=== PATIENT | male | born 1950 | race Caucasian/White ===

== ENCOUNTER → 2016-12-09 | Outpatient (CLI) | payer MEDICARE ==
[2016-12-09 10:44] LABS: ALT 57 U/L (21-72); AST 37 U/L (17-59); Alkaline Phosphatase 93 U/L (38-126); Anion Gap 10 mmol/L; Blood Urea Nitrogen 15 mg/dL (9-20); Calcium 9.1 mg/dL (8.4-10.2); Carbon Dioxide 23 mmol/L (22-30); Chloride 106 mmol/L (98-107); Glucose 111 mg/dL (74-99); Non-African American GFR(MDRD) >60 (>60 ml/min/1.73 sqM); Potassium 4.4 mmol/L (3.5-5.1); Sodium 139 mmol/L (137-145); Total Protein 6.5 g/dL (6.3-8.2)
[2016-12-09 11:08] LABS: Aty Lym Flag Slight; CH 31.2; CHCM 33.1; HCT 48.8 % (39.0-53.0); HDW 2.43; HGB 16.2 gm/dL (13.0-17.5); MCH 31.4 pg (25.0-35.0); MCHC 33.1 g/dL (31.0-37.0); MCV 94.8 fL (80.0-100.0); Mean Platelet Volume 7.4; RBC 5.14 m/uL (4.30-5.90); RDW 12.8 % (11.5-15.5); WBC 3.3 k/uL (3.8-10.6); WBC (Perox) 3.29
[2016-12-09 11:15] LABS: Prostate Specific Antigen 4.25 ng/mL (0.00-4.00)
[2016-12-09 12:06] LABS: Add Differential Manual Differential
[2016-12-09 12:09] LABS: Manual Review Performed; Nucleated Red Blood Cells 0 /100 WBC (0-0); RBC Morphology Normal; Total Cells Counted 100
== END | disposition home or self-care (01) ==
LOC: LABWHC1 09:20
PROVIDERS: ATTEND Psychiatry & Neurology Neurology
DX: N13.9 Obstructive and reflux uropathy, unspecified (principal); R73.9 Hyperglycemia, unspecified
CPT/HCPCS: 36415; 80053; 84153; 85025

== ENCOUNTER 2018-02-03 16:27 | Inpatient (IN) | payer MEDICARE ==
[2018-02-03] MEDS ORDERED: HYDROcodone/APAP 7.5-325MG 1 EACH TAB PO PRN ×2 (17:22)
[2018-02-03] MEDS ORDERED: ONDANSETRON 4 MG/2 ML VIAL IVP PRN (17:22)
[2018-02-03] MEDS ORDERED: hydrOXYzine PAMOATE 25 MG CAP PO PRN (17:22)
[2018-02-03] MEDS ORDERED: TEMAZEPAM 15 MG CAP PO PRN (17:22)
[2018-02-03] MEDS ORDERED: NALOXONE 0.4 MG/ML 1 ML VIAL IV PRN (17:22)
[2018-02-03] MEDS ORDERED: DIAZEPAM 5 MG TAB PO PRN (17:22)
[2018-02-03] MEDS ORDERED: HYDROmorphone 1 MG/ML 1 ML SYRINGE IVP PRN ×3 (17:22)
--- NOTE | 2018-02-03 17:32 | P.HPOR ---
History of Present Illness H&P Date: 02/03/18 Chief Complaint: Left Hip fracture Patient is a 67 year old male. He sustained injury to his left hip when he fell at home on 02/03/18. He was making his bed and his foot became caught in the covers. He had immediate onset of pain at the time of injury and was unable to bear any weight on the left hip since the injury. Patient states his pain level is at 9/10. He continues to have pain. He describes his pain as sharp and stabbing. Patient admits to taking medication for his symptoms including Motrin. He denies new numbness, tingling, calf pain, fever, chills, chest pain, shortness of breath, slurred speech or other. Review of Systems All systems: negative Constitutional: Denies chills, Denies fever Eyes: denies blurred vision, denies pain Ears, nose, mouth and throat: Denies headache, Denies sore throat Cardiovascular: Denies chest pain, Denies shortness of breath Respiratory: Denies cough Gastrointestinal: Denies abdominal pain, Denies diarrhea, Denies nausea, Denies vomiting Musculoskeletal: Denies myalgias Integumentary: Denies pruritus, Denies rash Neurological: Denies numbness, Denies weakness Psychiatric: Denies anxiety, Denies depression Endocrine: Denies fatigue, Denies weight change Past Medical History Additional Past Medical History / Comment(s): MS History of Any Multi-Drug Resistant Organisms: None Reported Past Surgical History: No Surgical Hx Reported Past Psychological History: No Psychological Hx Reported Smoking Status: Never smoker Past Alcohol Use History: None Reported Past Drug Use History: None Reported Medications and Allergies Home Medications Medication Instructions Recorded Confirmed Type Aspirin 07/17/14 07/17/14 History Allergies Allergy/AdvReac Type Severity Reaction Status Date / Time No Known Allergies Allergy Verified 07/17/14 01:05 Physical Examination Inspection: The hip area does not reveal any swelling, ecchymosis, or deformity. Patient is not put through range of motion due to recent hip fracture. Neurovascular status is intact. Circulatory status is intact. calf is soft and nontender Results Xrays from office on 02/03/18 show a displaced subcapital femoral neck fracture Assessment and Plan (1) Closed left hip fracture Narrative/Plan: Patient is being directed admitted with plans to proceed with surgical intervention tomorrow 02/04/18 including a left hip hemiarthroplasty. Preop clearance has been requested from Dr. Dee. He is NPO after midnight. The order for procedure schedule and consent has been placed. Labs, EKG and chest xray have been ordered as well. DVT prophylaxis, pain management and medical management in the interim. Current Visit: No Status: Acute Priority: Medium Code(s): S72.002A - FRACTURE OF UNSP PART OF NECK OF LEFT FEMUR, INIT SNOMED Code(s): 646295057 (2) Multiple sclerosis Current Visit: No Status: Acute Priority: Medium Code(s): G35 - MULTIPLE SCLEROSIS SNOMED Code(s): 40323115
[2018-02-03 17:43] LABS: Basophils % (A) 0 %; Eosinophils % (A) 0 %; HCT 45.7 % (39.0-53.0); HGB 14.9 gm/dL (13.0-17.5); Lymphocytes # (A) 0.3 k/uL (1.0-4.8); Lymphocytes % (A) 3 %; MCH 30.3 pg (25.0-35.0); MCHC 32.7 g/dL (31.0-37.0); MCV 92.7 fL (80.0-100.0); Mean Platelet Volume 7.2; Monocytes # (A) 0.7 k/uL (0-1.0); Monocytes % (A) 6 %; Neutrophils # (A) 9.7 k/uL (1.3-7.7); Neutrophils % (A) 89 %; Platelet Count 200 k/uL (150-450); RBC 4.93 m/uL (4.30-5.90); RDW 12.9 % (11.5-15.5); WBC 10.9 k/uL (3.8-10.6)
[2018-02-03] MEDS: LACTATED RINGERS 1,000 ML IV SCH (17:50)
[2018-02-03 17:53] LABS: ALT 53 U/L (21-72); AST 44 U/L (17-59); Albumin 4.1 g/dL (3.5-5.0); Alkaline Phosphatase 85 U/L (38-126); Anion Gap 7 mmol/L; Blood Urea Nitrogen 19 mg/dL (9-20); Calcium 9.3 mg/dL (8.4-10.2); Carbon Dioxide 24 mmol/L (22-30); Chloride 109 mmol/L (98-107); Glucose 116 mg/dL (74-99); Potassium 4.4 mmol/L (3.5-5.1); Sodium 140 mmol/L (137-145); Total Bilirubin 1.1 mg/dL (0.2-1.3); Total Protein 6.6 g/dL (6.3-8.2)
[2018-02-03 19:16] LABS: INR 1.1 (<1.2); Prothrombin Time 11.4 sec (9.0-12.0)
[2018-02-03] MEDS: traMADol 50 MG TAB PO PRN (20:15)
[2018-02-03] MEDS: SENNOSIDES-DOCUSATE SODIUM 1 EACH TAB PO SCH (20:15)
[2018-02-03] MEDS: TAMSULOSIN 0.4 MG CAP.ER.24H PO SCH (20:15)
[2018-02-04] MEDS: traMADol 50 MG TAB PO PRN (01:17)
[2018-02-04] MEDS: HYDROcodone/APAP 5-325MG 1 EACH TAB PO PRN (06:15)
[2018-02-04] MEDS ORDERED: FINGOLIMOD HCL 0.5 MG PO SCH (09:00)
[2018-02-04] MEDS ORDERED: NON-FORMULARY DRUG (Multivit-Min/Fa/Lycopen/Lutein [Centrum Silver Men Tablet] 1 TAB) PO SCH (09:00)
[2018-02-04] MEDS: ACETAMINOPHEN TAB 325 MG TAB PO PRN (09:07)
[2018-02-04] MEDS: FINGOLIMOD HCL 0.5 MG PO SCH (09:08)
--- NOTE | 2018-02-04 09:36 | P.CONS ---
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 He has been doing well last year with no major complaint of complication, he seen a neurologist in [facility] who manages MS on regular basis patient continued to have slight weakness in the left side along with mild atrophy in the left upper extremity as well. He walk with limp related to his MS weakness. Patient was doing well until yesterday when he turn it home and tripped in a rock end up falling on his left hip with worsening pain and discomfort in the inner part of the groin area in not been able to put full weight on the hip. Patient ended up going to the orthopedic associated office and seen Dr. Mccarthy. X-ray of the hip showed hip fracture. Patient was sent as a direct admit to the hospital from Dr. Mccarthy and prepare for hemiarthroplasty today 02/04/2018. Patient doesn't have any other injury no other major complaint has been doing well has not been hospitalized or have any major event in the last year. Review of Systems CONSTITUTIONAL: Well-developed no acute respiratory distress. Has history of MS EYES: No icterus sclerae, no conjunctivitis. EARS, NOSE, MOUTH, THROAT, and FACE: No sore throat, lymphadenopathy, carotid bruits or deformity. RESPIRATORY: No SOB cough or wheezes. CARDIOVASCULAR: No CP, Palpitation, PND, Orthopnea, or angina. GASTROINTESTINAL: No Abd pain, Nausea or vomiting, no Diarrhea or constipation, No GI Bleed, no distention or masses. GENITOURINARY: Negative for Hematuria or UTI, no kidney stones. INTEGUMENT/BREAST: Left hip fracture, weakness in the left side with mild atrophy and contraction left upper extremity as well. HEMATOLOGIC/LYMPHATIC: Negative for bleed or purpura. MUSCULOSKELTAL: More muscle contraction discomfort in the hip and left upper extremity contraction. NEURLOGICAL: No LOC, Sz or syncope, blurred vision dizziness or abnormality weakness in the left side from MS. BEHAVIORAL/PSYCH: Negative. ENDOCRINE: Negative. Past Medical History Past Medical History: Asthma, Cancer, Prostate Disorder Additional Past Medical History / Comment(s): MS, asthma as a child only, benign prostatic hypertrophy History of Any Multi-Drug Resistant Organisms: None Reported Past Surgical History: No Surgical Hx Reported Additional Past Surgical History / Comment(s): lt foot hammertoe sx-pins in place, colonoscopy/polypectomy-benign, back injections Past Anesthesia/Blood Transfusion Reactions: No Reported Reaction Smoking Status: Never smoker Additional Past Alcohol Use History / Comment(s): Patient is a lifelong nonsmoker, alcohol use is social only. He lives at home with his . 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 - Past Family History Mother Family Medical History: Asthma Additional Family Medical History / Comment(s): Mother at age 82 from a stroke but history of emphysema Father Family Medical History: Cancer, Congestive Heart Failure (CHF), Hypertension, Prostate Disorder Additional Family Medical History / Comment(s): Father at age 83 with history of prostate cancer. Brother(s) Additional Family Medical History / Comment(s): Patient has a total of 5 siblings, 2 have history of A fib. Daughter(s) Additional Family Medical History / Comment(s): Patient has one daughter is healthy with no major medical problems. Patient does not have any sons. Medications and Allergies Home Medications Medication Instructions Recorded Confirmed Type Fingolimod HCl [Gilenya] 0.5 mg PO DAILY 02/03/18 02/03/18 History Multivit-Min/FA/Lycopen/Lutein 1 tab PO DAILY 02/03/18 02/03/18 History [Centrum Silver Men Tablet] Tamsulosin [Flomax] 0.4 mg PO HS 02/03/18 02/03/18 History Allergies Allergy/AdvReac Type Severity Reaction Status Date / Time No Known Allergies Allergy Verified 02/03/18 18:10 Physical Exam Vitals: Vital Signs Temp Pulse Resp BP Pulse Ox 02/04/18 01:02 99.0 F 72 16 117/58 95 02/03/18 20:07 98.4 F 73 16 118/68 95 02/03/18 17:30 98.4 F 70 16 136/74 94 L Intake and Output 02/03/18 02/04/18 02/04/18 22:59 06:59 14:59 Intake Total 120 400 Output Total 500 200 Balance -380 200 Intake: Intake, IV Titration 400 Amount Lactated Ringers 1,000 ml 400 @ 50 mls/hr IV .Q20H [facility] Rx#:[id number] Oral 120 Output: Urine 500 200 Other: Voiding Method Urinal Urinal Weight 96.334 kg General Appearance: Alert, cooperative, no distress, appears stated age. He is comfortable laying in bed Neck HEENT: Supple, no lymphadenopathy, no thyroid enlargement, no carotid bruits. Lungs: Clear to auscultation without crackles or wheezes no rhonchi, no deformity. Chest Wall: Chest wall normal expansion with deep inspiration no tenderness and no deformity was found on exam, no costochondral pain or discomfort. Heart: Regular rate and rhythm, S1, S2 normal, no murmur, rub or gallop. Back: Symmetric, no curvature, ROM normal, no CVA tenderness. Abdomen: Soft, non-tender, bowel sounds active all four quadrants, no masses, no organomegaly. Extremities: Slight contraction in the left upper extremity with mild weakness, significant weakness in the left lower extremity as well with mild internal rotation with significant pain and discomfort in the inner groin from his hip fracture. Pulses: 2+ and symmetric. Skin: Skin color, texture, tugor normal, no rashes or lesions. Neurologic: Alert oriented x3 cranial nerves II through XII intact, significant motor deficits in the left side compared to the right side from MS with mild abnormal balance and gait. Results CBC & Chem 7: 02/03/18 17:37 02/03/18 17:37 Labs: Abnormal Lab Results - Last 24 Hours (Table) 02/03/18 02/03/18 Range/Units 17:37 17:37 WBC 10.9 H (3.8-10.6) k/uL Neutrophils # 9.7 H (1.3-7.7) k/uL Lymphocytes # 0.3 L (1.0-4.8) k/uL Chloride 109 H (98-107) mmol/L Creatinine 0.61 L (0.66-1.25) mg/dL Glucose 116 H (74-99) mg/dL Assessment and Plan Assessment: 1 left hip fracture: Patient is medically clear for surgery, review EKG and lab are all within normal limits, patient comorbidity is very low currently I don't see any reason to do any further investigation before this type of surgery. Will use post surgery DVT GI and pulmonary prophylaxis, patient will be watch hemodynamically after surgery. Will require more physical therapy and more support after surgery as well. 2 history of multiple sclerosis: Continue his current medication patient has been seen neurology on regular basis. 3 history of asthma: With no flareup lately patient can be on Ventolin inhaler on-demand as needed. 4 BPH with no sign of prostate cancer: Patient has been on tamsulosin, if fully catheter inserted during surgery we have slight concern about urinary retention afterward we'll might double the tamsulosin and use Proscar if needed after surgery. 5 mild hyperglycemia: Will watch blood sugar and repeat A1c with his blood work and maybe follow A1c and diabetic management as an outpatient if needed. 6 GI prophylaxis: Patient will be on Pepcid 20 mg daily. 7 DVT prophylaxis: Post surgery patient will be on full size aspirin 80 for the next 30 days. CODE STATUS: Full code. Dr. Mccarthy thank you very much for the consult for can be any further help to please let me know.
[2018-02-04] MEDS ORDERED: LACTATED RINGERS 1,000 ML IV ONE ×2 (10:13→13:01)
[2018-02-04] MEDS ORDERED: PROPOFOL 10 MG/ML 20 ML VIAL IV ONE (11:44)
[2018-02-04] MEDS ORDERED: fentaNYL (PF) 50 MCG/ML 2 ML AMP ONE (11:44)
[2018-02-04] MEDS ORDERED: ePHEDrine SULFATE/0.9% NACL/PF 50 MG/5 ML SYRINGE IV ONE (11:44)
[2018-02-04] MEDS ORDERED: LIDOCAINE 1% INJ 10MG/ML (20 ML MDV) ONE (11:44)
[2018-02-04] MEDS ORDERED: TRANEXAMIC ACID 1,000 MG/10 ML VIAL ONE (11:44)
[2018-02-04] MEDS ORDERED: SODIUM CHLORIDE 0.9% 100 ML BAG ONE (11:44)
[2018-02-04] MEDS ORDERED: MIDAZOLAM 2 MG/2 ML VIAL ONE (11:44)
[2018-02-04] MEDS ORDERED: NEOSTIGMINE 1 MG/ML 10 ML VIAL ONE (11:44)
[2018-02-04] MEDS ORDERED: GLYCOPYRROLATE 0.2 MG/ML 2 ML VIAL ONE (11:44)
[2018-02-04] MEDS ORDERED: ROCURONIUM BROMIDE 10 MG/ML 10 ML VIAL IV ONE (11:44)
[2018-02-04] MEDS ORDERED: SODIUM CHLORIDE 0.9% 50 ML with ceFAZolin 2,000 MG IV ONE ×2 (12:02)
[2018-02-04] MEDS ORDERED: ceFAZolin 1,000 MG in SODIUM CHLORIDE 0.9% 1,000 ML IRRIGATION ONE (12:02)
[2018-02-04] MEDS ORDERED: TRANEXAMIC ACID 1,000 MG in SODIUM CHLORIDE 0.9% 50 ML IVPB STA ×2 (12:09→12:15)
[2018-02-04] MEDS ORDERED: HYDROcodone/APAP 10-325MG 1 EACH TAB PO PRN ×2 (13:27)
[2018-02-04] MEDS ORDERED: HYDROcodone/APAP 7.5-325MG 1 EACH TAB PO PRN ×2 (13:27)
[2018-02-04] MEDS: HYDROmorphone 1 MG/ML 1 ML SYRINGE IVP ONE ×2 (13:55→14:05)
--- NOTE | 2018-02-04 13:55 | XR ---
Limited left hip HISTORY: Status post left hip arthroplasty Single frontal view of the left hip Patient is status post left hip arthroplasty. There is anatomic alignment. Lucency in the soft tissue s is compatible with postop state. IMPRESSION: Orthopedic follow-up.
[2018-02-04] MEDS: MULTIVITAMINS, THERA 1 EACH TAB PO SCH (15:39)
[2018-02-04 15:41] LABS: Basophils % (A) 0 %; Eosinophils # (A) 0.3 k/uL (0-0.7); Eosinophils % (A) 4 %; HCT 39.7 % (39.0-53.0); Lymphocytes # (A) 0.2 k/uL (1.0-4.8); Lymphocytes % (A) 3 %; MCH 30.8 pg (25.0-35.0); MCHC 32.7 g/dL (31.0-37.0); MCV 94.1 fL (80.0-100.0); Mean Platelet Volume 7.2; Monocytes # (A) 0.6 k/uL (0-1.0); Monocytes % (A) 7 %; Neutrophils # (A) 6.5 k/uL (1.3-7.7); Neutrophils % (A) 85 %; Platelet Count 136 k/uL (150-450); RBC 4.21 m/uL (4.30-5.90); RDW 12.7 % (11.5-15.5); WBC 7.6 k/uL (3.8-10.6)
--- NOTE | 2018-02-04 16:20 | OP ---
OPERATIVE REPORT DATE OF PROCEDURE: 02/04/2018 PREOPERATIVE DIAGNOSIS: Left hip displaced subcapital femoral neck fracture. POSTOPERATIVE DIAGNOSIS: Left hip displaced subcapital femoral neck fracture. PROCEDURE: Left hip hemiarthroplasty. SURGEON: Isra Mccarthy MD PAYROLL ANALYST: Saad Fregoso PA-C ANESTHESIA: General endotracheal. ESTIMATED BLOOD LOSS: 200 mL. TOURNIQUET: None. DRAINS: None. COMPLICATIONS: None apparent. DISPOSITION: Post-Anesthesia Care Unit. 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 Earlier in the day yesterday he slipped at home and fell onto his left hip. He was unable to ambulate. He was able to get to the office via assistance from his . Workup including x-rays revealed a displaced left femoral neck fracture. We then admitted him to the hospital from my office. He is a household ambulator. He does carry a diagnosis of multiple sclerosis with significant left-sided weakness. He was cleared per the medical service, and they decided to proceed with operative intervention in the form of left hip hemiarthroplasty. The risks of the procedure were discussed with Dr. Bravo and his in detail. These risks include but are not limited to risk of infection, nerve damage, bleeding, pain, and a small risk of deep vein thrombosis which could lead to fatal pulmonary embolism. Further risks include postoperative instability in the hip and periprosthetic fracture. All of their questions with regard to the risks were answered to their satisfaction. Appropriate informed consent was obtained. DESCRIPTION OF THE PROCEDURE: Patient was identified in the preoperative holding area. Surgical site was marked by both the patient and myself. He was given 2 grams of Ancef IV for prophylactic purposes. He was then transferred to the operative suite. He was placed supine on the operating room table. General anesthetic was then administered and dosed per the anesthesia department without apparent complication. He was then placed into the right lateral decubitus position, well padded in preparation for surgery. Great care was taken to ensure that his legs were appropriately padded and that he had a well-padded axillary roll. The patient's left lower extremity was then prepped and draped in the usual sterile fashion. Standard surgical pause was undertaken to ensure that we were operating on the correct site and that appropriate preoperative antibiotics had been given. All staff in the room were in agreement, and we proceeded. The tip of the greater trochanter was identified, as was the proximal femur. An approximate 10 cm incision was then based over the center of the greater trochanter in line with the femur. Incision was then made with a 10 blade scalpel. Dissection was carried down sharply to the tensor fascia. The tensor fascia was then incised in line with the incision. Hemostasis was achieved with electrocautery. The anterior raphe between the anterior one third and the middle two thirds of the gluteus medius muscle was identified. I then performed an anterolateral Hardinge type approach to the hip. The anterior third of the gluteus medius, gluteus minimus and hip capsule was taken off in a sleeve and retracted anteriorly. The displaced femoral neck fracture was readily evident. I then utilized the guide and reciprocating saw to freshen the femoral neck cut. I then proceeded with removal of the [place] femoral head. This was done with a corkscrew type device. The acetabulum was then inspected. The cartilage was in good condition. There were no loose bodies noted within the acetabulum. I then measured the [place] femoral head for size. It measured a size 55 mm. A 55 mm trial was then placed and had good suction fit within the acetabulum. The proximal femur was then delivered out through the wound by externally rotating and flexing the hip across the body. I then utilized a box truck owner operator to gain entrance to the femoral canal. The starter reamer was then utilized. I then utilized a lateralizer and then proceeded with reaming of the proximal femur. I started with an 8 mm reamer and incrementally increased up to a 14 mm reamer, where I had good resistance on the cortex. I then proceeded to broach. I started with a size 8 broach and incrementally increased up to a size 14 broach. The broach was placed in approximately 10 to 15 degrees of anteversion. The size 14 broach had excellent press-fit. I then proceeded to trial. I started with a minus 3 neck and a 55 trial head. The hip was reduced. It was a difficult reduction. It was very stable with this configuration. It was taken through full range of motion. There was very minimal shuck. I decided to go forward with a minus 3 neck. The hip was then carefully re-dislocated. The trial components were removed. The wound was thoroughly irrigated with sterile saline solution with antibiotic added via pulse lavage. Then I had the brand representative open a Biomet Bimetric collared humeral stem, a minus 3 neck and a 55 mm monopolar head. The stem was then impacted into the canal in approximately 10 to 15 degrees of anteversion. It had excellent press-fit. I then dried the trunnion and then impacted the minus 3 stem and 55 mm monopolar head onto the Wilson taper. The hip was then reduced. Again it was very stable throughout a full range of motion and had very minimal shuck. At this point in time, no further work was deemed necessary. We proceeded with closure. The anterior capsule of the gluteus medius and gluteus minimus were repaired back to the greater trochanter utilizing #5 Ethibond transosseous sutures. The raphe between the anterior one third and posterior two thirds of the gluteus medius was repaired with 0 Vicryl interrupted suture. Again the wound was thoroughly irrigated with sterile saline solution with antibiotic added. The tensor fascia was then closed with a running #2 Quill suture. The subcutaneous tissue was closed with 2-0 Vicryl interrupted suture, and the skin was closed with a running 3-0 Quill suture. Dermabond was applied to the incision. Sterile compressive dressing was then applied. The patient was placed into a hip abductor pillow. All sponge and needle counts were deemed correct prior to closure. The patient tolerated the procedure without apparent complication. He was transferred to the recovery room in stable condition. JEANINE / RAVINDRA: [id number] /
[2018-02-04] MEDS: ceFAZolin IN SWFI 2 GM/20 ML SYRINGE IVP SCH ×2 (16:56→23:23)
[2018-02-04] MEDS: TAMSULOSIN 0.4 MG CAP.ER.24H PO SCH (20:24)
[2018-02-04] MEDS: SENNOSIDES-DOCUSATE SODIUM 1 EACH TAB PO SCH (20:24)
[2018-02-04] MEDS: ASPIRIN 325 MG TAB PO SCH (20:24)
[2018-02-04] MEDS: LACTATED RINGERS 1,000 ML IV SCH (22:17)
[2018-02-05] MEDS: ACETAMINOPHEN TAB 325 MG TAB PO PRN ×2 (03:54→23:09)
[2018-02-05] MEDS: ASPIRIN 325 MG TAB PO SCH ×2 (08:19→20:03)
[2018-02-05] MEDS: FINGOLIMOD HCL 0.5 MG PO SCH (08:19)
[2018-02-05 08:41] LABS: Basophils % (A) 0 %; Eosinophils # (A) 0.1 k/uL (0-0.7); Eosinophils % (A) 1 %; HCT 38.2 % (39.0-53.0); Lymphocytes # (A) 0.3 k/uL (1.0-4.8); Lymphocytes % (A) 3 %; MCH 31.5 pg (25.0-35.0); MCHC 33.9 g/dL (31.0-37.0); MCV 92.9 fL (80.0-100.0); Mean Platelet Volume 7.4; Monocytes # (A) 0.6 k/uL (0-1.0); Monocytes % (A) 8 %; Neutrophils # (A) 6.6 k/uL (1.3-7.7); Neutrophils % (A) 87 %; Platelet Count 140 k/uL (150-450); RBC 4.11 m/uL (4.30-5.90); RDW 12.5 % (11.5-15.5); WBC 7.6 k/uL (3.8-10.6)
[2018-02-05] MEDS: HYDROcodone/APAP 5-325MG 1 EACH TAB PO PRN ×3 (08:45→20:48)
[2018-02-05] MEDS: TAMSULOSIN 0.4 MG CAP.ER.24H PO SCH ×2 (09:54→20:03)
--- NOTE | 2018-02-05 12:17 | P.PN ---
Subjective Progress Note Date: 02/05/18 Principal diagnosis: Left hip fracture Patient is seen at bedside this morning. He is postop day #1 from left hip magnolia arthroplasty. He has pain at the surgical site as expected. He had some urinary retention last evening and now has garner in place. He denies any new complaints. He denies numbness, tingling or calf pain. Review of systems is negative for fever, chills, chest pain, shortness of breath or other Objective - Vital Signs Vital signs: Vital Signs Temp 99.0 F 02/05/18 08:00 Pulse 85 02/05/18 08:00 Resp 16 02/05/18 08:00 BP 134/60 02/05/18 08:00 Pulse Ox 95 02/05/18 08:00 Intake & Output 02/04/18 02/05/18 02/05/18 18:59 06:59 18:59 Intake Total 1321.5 Output Total 200 1650 Balance 1121.5 -1650 Intake: IV 1321.5 Output: Urine 1650 Straight 1650 Estimated Blood Loss 200 Other: Voiding Method Urinal Urinal # Voids 1 - Exam Inspection reveals a benign surgical wound. There is no active bleeding or drainage. Neurovascular status is intact throughout the lower extremity with motor and sensation fully intact. Calf is soft and nontender. 2+ dorsalis pedis pulse and less than 2 second cap refill is present. - Constitutional General appearance: Present: no acute distress - Labs CBC & Chem 7: 02/05/18 07:31 02/03/18 17:37 Labs: Abnormal Lab Results - Last 24 Hours (Table) 02/04/18 02/05/18 Range/Units 15:01 07:31 RBC 4.21 L 4.11 L (4.30-5.90) m/uL Hct 38.2 L (39.0-53.0) % Plt Count 136 L 140 L (150-450) k/uL Lymphocytes # 0.2 L 0.3 L (1.0-4.8) k/uL Assessment and Plan (1) Closed left hip fracture Narrative/Plan: He will continue with routine postop orthopedic protocol including pain management, wound care, PT, DVT prophylaxis and medical management. Consult order has been placed with Dr. Adair regarding his urinary retention. Expect that he will transfer to rehab in next few days. Current Visit: Yes Status: Acute Priority: Medium Code(s): S72.002A - FRACTURE OF UNSP PART OF NECK OF LEFT FEMUR, INIT SNOMED Code(s): 085728092 (2) Multiple sclerosis Current Visit: No Status: Acute Priority: Medium Code(s): G35 - MULTIPLE SCLEROSIS SNOMED Code(s): 47894142 Time with Patient: Less than 30
[2018-02-05] MEDS: MULTIVITAMINS, THERA 1 EACH TAB PO SCH (12:31)
--- NOTE | 2018-02-05 12:59 | P.CONS ---
History of Present Illness - Chief Complaint Walking difficulty - History of Present Illness I had the opportunity to see patient for inpatient rehab consultation with regard to walking difficulty. He was admitted to [facility] February 01 history trip and fall at home and left hip pain. X-ray demonstrated hip fracture. Evaluated Dr. Mccarthy underwent arthroplasty replacement. Seen in concert Dr. Dee. PT reports moderate assistance for bed mobility and 2 person minimal assistance for gait and transfers, 20 feet with roller walker. OT prescribed. 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 Did not smoke or drink. Family history father with prostate cancer. Review of Systems Review of systems: ENT: Denies sneezes or discharge. Eyes: Denies discharge or photophobia. Cardiac: Denies chest pain or palpitation. Pulmonary: Denies cough or shortness of breath. Gastrointestinal: Denies nausea, emesis, constipation, diarrhea. Genitourinary: Denies discharge or frequency. Musculoskeletal: Discomfort left hip. Neurologic: Long-standing weakness and numbness left arm and leg. Endocrine: Denies shakes or sweats. Oncology: Denies cancers. Dermatologic: Denies rash, itching, pruritus. ALLERGY/immunology: Denies sneezes, rashes. Past Medical History Past Medical History: Asthma, Cancer, Prostate Disorder Additional Past Medical History / Comment(s): MS, asthma as a child only, benign prostatic hypertrophy History of Any Multi-Drug Resistant Organisms: None Reported Past Surgical History: No Surgical Hx Reported Additional Past Surgical History / Comment(s): lt foot hammertoe sx-pins in place, colonoscopy/polypectomy-benign, back injections Past Anesthesia/Blood Transfusion Reactions: No Reported Reaction Smoking Status: Never smoker Additional Past Alcohol Use History / Comment(s): Patient is a lifelong nonsmoker, alcohol use is social only. He lives at home with his . 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 - Past Family History Mother Family Medical History: Asthma Additional Family Medical History / Comment(s): Mother at age 82 from a stroke but history of emphysema Father Family Medical History: Cancer, Congestive Heart Failure (CHF), Hypertension, Prostate Disorder Additional Family Medical History / Comment(s): Father at age 83 with history of prostate cancer. Brother(s) Additional Family Medical History / Comment(s): Patient has a total of 5 siblings, 2 have history of A fib. Daughter(s) Additional Family Medical History / Comment(s): Patient has one daughter is healthy with no major medical problems. Patient does not have any sons. Medications and Allergies Home Medications Medication Instructions Recorded Confirmed Type Fingolimod HCl [Gilenya] 0.5 mg PO DAILY 02/03/18 02/03/18 History Multivit-Min/FA/Lycopen/Lutein 1 tab PO DAILY 02/03/18 02/03/18 History [Centrum Silver Men Tablet] Tamsulosin [Flomax] 0.4 mg PO HS 02/03/18 02/03/18 History Aspirin 325 mg PO BID #60 tab 02/05/18 Rx Docusate [Colace] 100 mg PO BID #60 capsule 02/05/18 Rx HYDROcodone/APAP 7.5-325MG [[place]ebul[place] 1 - 2 each PO Q6HR PRN #56 tab 02/05/18 Rx 7.5-325] Allergies Allergy/AdvReac Type Severity Reaction Status Date / Time No Known Allergies Allergy Verified 02/04/18 09:50 Physical Exam Vitals: Vital Signs Temp Pulse Resp BP Pulse Ox 02/05/18 08:00 99.0 F 85 16 134/60 95 02/05/18 04:00 88 15 02/05/18 02:14 99.2 F 88 15 118/66 95 02/05/18 00:00 75 18 02/04/18 20:00 75 18 02/04/18 19:00 98.5 F 75 18 135/70 95 02/04/18 17:51 80 128/69 93 L 02/04/18 17:35 67 113/58 92 L 02/04/18 17:20 73 118/66 90 L 02/04/18 17:05 73 143/76 92 L 02/04/18 16:52 60 107/66 93 L 02/04/18 14:21 97.6 F 63 16 102/62 92 L 02/04/18 13:57 60 16 124/65 95 02/04/18 13:42 61 16 120/64 97 02/04/18 13:26 97.3 F L 65 16 125/62 96 Intake and Output 02/04/18 02/05/18 02/05/18 22:59 06:59 14:59 Output Total 435 814 3109 Balance -850 -800 -1300 Output: Urine 765 847 4264 Straight 850 800 Other: Voiding Method Urinal Indwelling Catheter # Voids 1 Skin: Good color, texture, turgor. General: Medium build and comfortable appearance. Head: Normocephalic, atraumatic. Eyes: Symmetric. Pupils equal round. Ears: Symmetric. Hearing within normal limits. Mouth: Clear. Neck: Supple. Carotid without bruit. Cardiac: Regular rate and rhythm. Lungs: Clear anteriorly and posteriorly. Abdomen: Soft active nontender. Extremities: Pain in left hip. Clean and dressed. Neurological: Mental status: Alert, cooperative, pleasant. Cranial nerves: Symmetric facial tone and trapezius. Motor: Active movement throughout but weakness left side. Left leg with much giveaway weakness due to pain produced and hip. Sensation: Intact throughout. DTRs: Symmetric and equal throughout. Mobility: Sits with assistance. Results CBC & Chem 7: 02/05/18 07:31 02/03/18 17:37 Labs: Abnormal Lab Results - Last 24 Hours (Table) 02/04/18 02/05/18 Range/Units 15:01 07:31 RBC 4.21 L 4.11 L (4.30-5.90) m/uL Hct 38.2 L (39.0-53.0) % Plt Count 136 L 140 L (150-450) k/uL Lymphocytes # 0.2 L 0.3 L (1.0-4.8) k/uL Assessment and Plan (1) Closed left hip fracture Current Visit: Yes Status: Acute Priority: Medium Code(s): S72.002A - FRACTURE OF UNSP PART OF NECK OF LEFT FEMUR, INIT SNOMED Code(s): 978065840 (2) Multiple sclerosis Current Visit: No Status: Acute Priority: Medium Code(s): G35 - MULTIPLE SCLEROSIS SNOMED Code(s): 86353303 Plan: Impression: 1. Walking difficulty. 2. Close left hip fracture status post repair. 3. MS and left hemiparesthesias. 4. Asthma. Comments and plan: At this time PT ongoing. Awaiting OT notes. Discussed possible inpatient rehab in both patient and seem agreeable and hopeful for rehab.
--- NOTE | 2018-02-05 15:00 | P.GSCN ---
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 He was admitted to the hospital required surgery by Dr. Mccarthy. He has developed postoperative urinary retention and we are asked see the patient. The patient is known to me. He has been previously evaluated for BPH. He does have multiple sclerosis. This does not appear to affect his voiding. He has been voiding well prior to the surgery. He has been on Flomax 0.4 mg daily. He did not have an intraoperative catheter. He had 2 intermittent catheterizations postoperatively for large volumes of urine. The catheter was finally placed. The patient has been on no medications to contribute to retention. Not been constipated. He is feeling much better at this point in time. Review of Systems All systems: negative - Genitourinary Denies dysuria, Denies hematuria - Musculoskeletal Reports as per HPI Past Medical History Past Medical History: Asthma, Cancer, Prostate Disorder Additional Past Medical History / Comment(s): MS, asthma as a child only, benign prostatic hypertrophy History of Any Multi-Drug Resistant Organisms: None Reported Past Surgical History: No Surgical Hx Reported Additional Past Surgical History / Comment(s): lt foot hammertoe sx-pins in place, colonoscopy/polypectomy-benign, back injections Past Anesthesia/Blood Transfusion Reactions: No Reported Reaction Smoking Status: Never smoker Additional Past Alcohol Use History / Comment(s): Patient is a lifelong nonsmoker, alcohol use is social only. He lives at home with his . 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 - Past Family History Mother Family Medical History: Asthma Additional Family Medical History / Comment(s): Mother at age 82 from a stroke but history of emphysema Father Family Medical History: Cancer, Congestive Heart Failure (CHF), Hypertension, Prostate Disorder Additional Family Medical History / Comment(s): Father at age 83 with history of prostate cancer. Brother(s) Additional Family Medical History / Comment(s): Patient has a total of 5 siblings, 2 have history of A fib. Daughter(s) Additional Family Medical History / Comment(s): Patient has one daughter is healthy with no major medical problems. Patient does not have any sons. Medications and Allergies Home Medications Medication Instructions Recorded Confirmed Type Fingolimod HCl [Gilenya] 0.5 mg PO DAILY 02/03/18 02/03/18 History Multivit-Min/FA/Lycopen/Lutein 1 tab PO DAILY 02/03/18 02/03/18 History [Centrum Silver Men Tablet] Tamsulosin [Flomax] 0.4 mg PO HS 02/03/18 02/03/18 History Aspirin 325 mg PO BID #60 tab 02/05/18 Rx Docusate [Colace] 100 mg PO BID #60 capsule 02/05/18 Rx HYDROcodone/APAP 7.5-325MG [[place] 1 - 2 each PO Q6HR PRN #56 tab 02/05/18 Rx 7.5-325] Allergies Allergy/AdvReac Type Severity Reaction Status Date / Time No Known Allergies Allergy Verified 02/04/18 09:50 Surgical - Exam Vital Signs Temp Pulse Resp BP Pulse Ox 98.4 F 70 16 136/74 94 L 02/03/18 17:30 02/03/18 17:30 02/03/18 17:30 02/03/18 17:30 02/03/18 17:30 - General well developed, well nourished, no distress - Eyes PERRL - ENT no hearing loss - Neck trachea midline - Respiratory normal expansion, normal respiratory effort - Cardiovascular Rhythm: regular - Abdomen Abdomen: soft, non tender - Genitourinary Indwelling catheter with clear urine. normal penis with no external lesions, testicles present - Integumentary no rash, no growths - Neurologic normal coordination, normal sensation - Musculoskeletal Left hip incision bandage coverage normal posture - Psychiatric oriented to time, oriented to person, oriented to place, speech is normal, memory intact Results - Labs 02/05/18 07:31 02/03/18 17:37 Abnormal Lab Results - Last 24 Hours (Table) 02/04/18 02/05/18 Range/Units 15:01 07:31 RBC 4.21 L 4.11 L (4.30-5.90) m/uL Hct 38.2 L (39.0-53.0) % Plt Count 136 L 140 L (150-450) k/uL Lymphocytes # 0.2 L 0.3 L (1.0-4.8) k/uL Assessment and Plan Assessment: Impression: Acute postoperative urine retention. Preoperative BPH. Multiple sclerosis. Recommendations: Given both the preoperative BPH and the multiple sclerosis postoperative urinary retention is not unexpected. I recommend leaving the catheter in place another 4872 hours until he is ambulatory which time it can be removed for a voiding trial. He should stay on the Flomax in the interim. I suspect he'll have successful voiding if this plan is followed
--- NOTE | 2018-02-05 15:04 | P.PN ---
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 He has been doing well last year with no major complaint of complication, he seen a neurologist in [facility] who manages MS on regular basis patient continued to have slight weakness in the left side along with mild atrophy in the left upper extremity as well. He walk with limp related to his MS weakness. Patient was doing well until yesterday when he turn it home and tripped in a rock end up falling on his left hip with worsening pain and discomfort in the inner part of the groin area in not been able to put full weight on the hip. Patient ended up going to the orthopedic associated office and seen Dr. Mccarthy. X-ray of the hip showed hip fracture. Patient was sent as a direct admit to the hospital from Dr. Mccarthy and prepare for hemiarthroplasty today 02/04/2018. Patient doesn't have any other injury no other major complaint has been doing well has not been hospitalized or have any major event in the last year. 02/05: patient required Siddiqui catheter placement last evening for urinary retention. Flomax will be increased to twice daily. Consult with Dr. Muro added this morning for possible subacute rehab. Patient is requesting consult with Dr. Marshall. Pain is currently controlled. No nausea or vomiting. Patient' s is at the bedside and has been updated. All questions have been answered. Review of Systems CONSTITUTIONAL: Well-developed no acute respiratory distress. Has history of MS EYES: No icterus sclerae, no conjunctivitis. EARS, NOSE, MOUTH, THROAT, and FACE: No sore throat, lymphadenopathy, carotid bruits or deformity. RESPIRATORY: No SOB cough or wheezes. CARDIOVASCULAR: No CP, Palpitation, PND, Orthopnea, or angina. GASTROINTESTINAL: No Abd pain, Nausea or vomiting, no Diarrhea or constipation, No GI Bleed, no distention or masses. GENITOURINARY: Negative for Hematuria or UTI, no kidney stones. INTEGUMENT/BREAST: Left hip fracture, weakness in the left side with mild atrophy and contraction left upper extremity as well. HEMATOLOGIC/LYMPHATIC: Negative for bleed or purpura. MUSCULOSKELTAL: More muscle contraction discomfort in the hip and left upper extremity contraction. NEURLOGICAL: No LOC, Sz or syncope, blurred vision dizziness or abnormality weakness in the left side from MS. BEHAVIORAL/PSYCH: Negative. ENDOCRINE: Negative. Objective - Vital Signs Vital signs: Vital Signs Temp 99.0 F 02/05/18 08:00 Pulse 85 02/05/18 08:00 Resp 16 02/05/18 08:00 BP 134/60 02/05/18 08:00 Pulse Ox 95 02/05/18 08:00 Intake & Output 02/04/18 02/05/18 02/05/18 18:59 06:59 18:59 Intake Total 1321.5 Output Total 200 1650 Balance 1121.5 -1650 Intake: IV 1321.5 Output: Urine 1650 Straight 1650 Estimated Blood Loss 200 Other: Voiding Method Urinal Urinal # Voids 1 - Exam General Appearance: Alert, cooperative, no distress, appears stated age. He is comfortable in recliner. Patient's is at the bedside. Neck HEENT: Supple, no lymphadenopathy, no thyroid enlargement, no carotid bruits. Lungs: Clear to auscultation without crackles or wheezes no rhonchi, no deformity. Chest Wall: Chest wall normal expansion with deep inspiration no tenderness and no deformity was found on exam, no costochondral pain or discomfort. Heart: Regular rate and rhythm, S1, S2 normal, no murmur, rub or gallop. Back: Symmetric, no curvature, ROM normal, no CVA tenderness. Abdomen: Soft, non-tender, bowel sounds active all four quadrants, no masses, no organomegaly. Extremities: Slight contraction in the left upper extremity with mild weakness, significant weakness in the left lower extremity. dressing in place to the lateral left hip. No significant bleeding or drainage. Pulses: 2+ and symmetric. Skin: Skin color, texture, tugor normal, no rashes or lesions. Neurologic: Alert oriented x3 cranial nerves II through XII intact, significant motor deficits in the left side compared to the right side from MS with mild abnormal balance and gait. - Labs CBC & Chem 7: 02/05/18 07:31 02/03/18 17:37 Labs: Abnormal Lab Results - Last 24 Hours (Table) 02/04/18 02/05/18 Range/Units 15:01 07:31 RBC 4.21 L 4.11 L (4.30-5.90) m/uL Hct 38.2 L (39.0-53.0) % Plt Count 136 L 140 L (150-450) k/uL Lymphocytes # 0.2 L 0.3 L (1.0-4.8) k/uL Assessment and Plan Plan: 1 left hip fracture: Patient is medically clear for surgery, review EKG and lab are all within normal limits, patient comorbidity is very low currently I don't see any reason to do any further investigation before this type of surgery. Will use post surgery DVT GI and pulmonary prophylaxis, patient will be watch hemodynamically after surgery. Will require more physical therapy and more support after surgery as well. 2 history of multiple sclerosis: Continue his current medication patient has been seen neurology on regular basis. 3 history of asthma: With no flareup lately patient can be on Ventolin inhaler on-demand as needed. 4 BPH with no sign of prostate cancer: Patient has been on tamsulosin, if fully catheter inserted during surgery we have slight concern about urinary retention afterward we'll might double the tamsulosin and use Proscar if needed after surgery. 5 mild hyperglycemia: Will watch blood sugar and repeat A1c with his blood work and maybe follow A1c and diabetic management as an outpatient if needed. 6 GI prophylaxis: Patient will be on Pepcid 20 mg daily. 7 DVT prophylaxis: aspirin 325 mg twice daily.. 8. Urinary retention requiring Siddiqui catheter placement. Flomax increased to 0.4 mg twice daily. Consult with Dr. Marshall appreciated CODE STATUS: Full code. Discharge plan:possible subacute rehab. Consult with Dr. Muro. Impression and plan of care have been directed as dictated by the signing physician. Daisy Carty nurse practitioner acting as scribe for signing physician.
[2018-02-05] MEDS: SENNOSIDES-DOCUSATE SODIUM 1 EACH TAB PO SCH (20:03)
[2018-02-06 08:07] LABS: Basophils % (A) 0 %; Eosinophils # (A) 0.3 k/uL (0-0.7); Eosinophils % (A) 4 %; HCT 38.3 % (39.0-53.0); HGB 12.2 gm/dL (13.0-17.5); Lymphocytes # (A) 0.3 k/uL (1.0-4.8); Lymphocytes % (A) 4 %; MCH 30.2 pg (25.0-35.0); MCHC 31.9 g/dL (31.0-37.0); MCV 94.5 fL (80.0-100.0); Mean Platelet Volume 7.2; Monocytes # (A) 0.6 k/uL (0-1.0); Monocytes % (A) 8 %; Neutrophils % (A) 83 %; Platelet Count 136 k/uL (150-450); RBC 4.05 m/uL (4.30-5.90); RDW 12.5 % (11.5-15.5); WBC 7.2 k/uL (3.8-10.6)
[2018-02-06] MEDS: ASPIRIN 325 MG TAB PO SCH ×2 (08:22→20:43)
[2018-02-06] MEDS: FINGOLIMOD HCL 0.5 MG PO SCH (08:22)
[2018-02-06] MEDS: HYDROcodone/APAP 5-325MG 1 EACH TAB PO PRN ×2 (08:22→18:48)
[2018-02-06] MEDS: TAMSULOSIN 0.4 MG CAP.ER.24H PO SCH ×2 (08:22→20:42)
--- NOTE | 2018-02-06 09:30 | P.PN ---
Subjective Progress Note Date: 02/06/18 The patient is in the hospital left femoral neck fracture. He has preoperative BPH and postoperative urine retention. They catheters draining without difficulty. I recommend leaving the catheter in another 24-48 hours before a voiding trial. Objective - Vital Signs Vital signs: Vital Signs Temp 97.6 F 02/06/18 08:23 Pulse 96 02/06/18 08:23 Resp 16 02/06/18 08:23 BP 132/72 02/06/18 08:23 Pulse Ox 94 L 02/06/18 08:23 Intake & Output 02/05/18 02/06/18 02/06/18 18:59 06:59 18:59 Intake Total 240 120 Output Total 1300 1900 Balance -1060 -1900 120 Intake: Oral 240 120 Output: Urine 1300 1900 Other: Voiding Method Indwelling Catheter Indwelling Catheter Indwelling Catheter - Labs CBC & Chem 7: 02/06/18 07:30 02/03/18 17:37 Labs: Abnormal Lab Results - Last 24 Hours (Table) 02/06/18 Range/Units 07:30 RBC 4.05 L (4.30-5.90) m/uL Hgb 12.2 L (13.0-17.5) gm/dL Hct 38.3 L (39.0-53.0) % Plt Count 136 L (150-450) k/uL Lymphocytes # 0.3 L (1.0-4.8) k/uL
--- NOTE | 2018-02-06 09:56 | P.PN ---
Subjective Progress Note Date: 02/06/18 Principal diagnosis: Status post left hip hemiarthroplasty This is a 67 year-old male post left hip hemiarthroplasty. This is post-op day 1. The patient was evaluated at the bedside today. The patient denies nausea, vomiting, abdominal pain, shortness of breath, and chest pain this morning. He states has pain is controlled at this time. The patient has been up with physical therapy. He did require recatheterization due to urinary retention and Dr. Marshall is on the case. Dr. Marshall is suggesting a couple more days with a Siddiqui catheter. We are awaiting possible inpatient rehab placement at [facility]. Objective - Vital Signs Vital signs: Vital Signs Temp 97.6 F 02/06/18 08:23 Pulse 96 02/06/18 08:23 Resp 16 02/06/18 08:23 BP 132/72 02/06/18 08:23 Pulse Ox 94 L 02/06/18 08:23 Intake & Output 02/05/18 02/06/18 02/06/18 18:59 06:59 18:59 Intake Total 240 120 Output Total 1300 1900 Balance -1060 -1900 120 Intake: Oral 240 120 Output: Urine 1300 1900 Other: Voiding Method Indwelling Catheter Indwelling Catheter Indwelling Catheter - Exam The patient does not appear in acute distress. Alert and orientated x3. Dressing is clean dry and intact. Incision appears fine with no erythema or active drainage. Calf is soft and nontender. Good foot and ankle motion without difficulty. Sensation and circulatory status is intact. - Labs CBC & Chem 7: 02/06/18 07:30 02/03/18 17:37 Labs: Abnormal Lab Results - Last 24 Hours (Table) 02/06/18 Range/Units 07:30 RBC 4.05 L (4.30-5.90) m/uL Hgb 12.2 L (13.0-17.5) gm/dL Hct 38.3 L (39.0-53.0) % Plt Count 136 L (150-450) k/uL Lymphocytes # 0.3 L (1.0-4.8) k/uL Assessment and Plan (1) Status post hip hemiarthroplasty Current Visit: Yes Status: Acute Code(s): Z96.649 - PRESENCE OF UNSPECIFIED ARTIFICIAL HIP JOINT SNOMED Code(s): 342512987 (2) Closed left hip fracture Current Visit: Yes Status: Acute Priority: Medium Code(s): S72.002A - FRACTURE OF UNSP PART OF NECK OF LEFT FEMUR, INIT SNOMED Code(s): 555841323 (3) Multiple sclerosis Current Visit: No Status: Acute Priority: Medium Code(s): G35 - MULTIPLE SCLEROSIS SNOMED Code(s): 73269233 Plan: 1. Continue pain control 2. Anticoagulation with Aspirin 3. Continue physical therapy and ambulation 4. Anticipate discharge to inpatient rehab upon approval.
--- NOTE | 2018-02-06 11:47 | P.PN ---
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 He has been doing well last year with no major complaint of complication, he seen a neurologist in [facility] who manages MS on regular basis patient continued to have slight weakness in the left side along with mild atrophy in the left upper extremity as well. He walk with limp related to his MS weakness. Patient was doing well until yesterday when he turn it home and tripped in a rock end up falling on his left hip with worsening pain and discomfort in the inner part of the groin area in not been able to put full weight on the hip. Patient ended up going to the orthopedic associated office and seen Dr. Mccarthy. X-ray of the hip showed hip fracture. Patient was sent as a direct admit to the hospital from Dr. Mccarthy and prepare for hemiarthroplasty today 02/04/2018. Patient doesn't have any other injury no other major complaint has been doing well has not been hospitalized or have any major event in the last year. 02/05: patient required Siddiqui catheter placement last evening for urinary retention. Flomax will be increased to twice daily. Consult with Dr. Muro added this morning for possible subacute rehab. Patient is requesting consult with Dr. Marshall. Pain is currently controlled. No nausea or vomiting. Patient' s is at the bedside and has been updated. All questions have been answered. 02/06: She is sitting up in chair in no apparent distress he denies any chest pain, shortness breath, he was receiving [place] for his pain management, he was seen in consultation by physical therapy and rehabilitation and likely will be transferred to [facility] for physical therapy on Thursday. Review of Systems CONSTITUTIONAL: Well-developed no acute respiratory distress. Has history of MS EYES: No icterus sclerae, no conjunctivitis. EARS, NOSE, MOUTH, THROAT, and FACE: No sore throat, lymphadenopathy, carotid bruits or deformity. RESPIRATORY: No SOB cough or wheezes. CARDIOVASCULAR: No CP, Palpitation, PND, Orthopnea, or angina. GASTROINTESTINAL: No Abd pain, Nausea or vomiting, no Diarrhea or constipation, No GI Bleed, no distention or masses. GENITOURINARY: Negative for Hematuria or UTI, no kidney stones. INTEGUMENT/BREAST: Left hip fracture, weakness in the left side with mild atrophy and contraction left upper extremity as well. HEMATOLOGIC/LYMPHATIC: Negative for bleed or purpura. MUSCULOSKELTAL: More muscle contraction discomfort in the hip and left upper extremity contraction. NEURLOGICAL: No LOC, Sz or syncope, blurred vision dizziness or abnormality weakness in the left side from MS. BEHAVIORAL/PSYCH: Negative. ENDOCRINE: Negative. Objective - Vital Signs Vital signs: Vital Signs Temp 98.9 F 02/06/18 01:14 Pulse 69 02/06/18 03:15 Resp 16 02/06/18 03:15 BP 115/65 02/06/18 01:14 Pulse Ox 96 02/06/18 01:14 Intake & Output 02/05/18 02/06/18 02/06/18 18:59 06:59 18:59 Intake Total 240 Output Total 1300 1900 Balance -1060 -1900 Intake: Oral 240 Output: Urine 1300 1900 Other: Voiding Method Indwelling Catheter Indwelling Catheter - Exam - Exam General Appearance: Alert, cooperative, no distress, appears stated age. He is comfortable in recliner. Patient's is at the bedside. Neck HEENT: Supple, no lymphadenopathy, no thyroid enlargement, no carotid bruits. Lungs: Clear to auscultation without crackles or wheezes no rhonchi, no deformity. Chest Wall: Chest wall normal expansion with deep inspiration no tenderness and no deformity was found on exam, no costochondral pain or discomfort. Heart: Regular rate and rhythm, S1, S2 normal, no murmur, rub or gallop. Back: Symmetric, no curvature, ROM normal, no CVA tenderness. Abdomen: Soft, non-tender, bowel sounds active all four quadrants, no masses, no organomegaly. Extremities: Slight contraction in the left upper extremity with mild weakness, significant weakness in the left lower extremity. dressing in place to the lateral left hip. No significant bleeding or drainage. Pulses: 2+ and symmetric. Skin: Skin color, texture, tugor normal, no rashes or lesions. Neurologic: Alert oriented x3 cranial nerves II through XII intact, significant motor deficits in the left side compared to the right side from MS with mild abnormal balance and gait. - Labs CBC & Chem 7: 02/06/18 07:30 02/03/18 17:37 Labs: Abnormal Lab Results - Last 24 Hours (Table) 02/05/18 Range/Units 07:31 RBC 4.11 L (4.30-5.90) m/uL Hct 38.2 L (39.0-53.0) % Plt Count 140 L (150-450) k/uL Lymphocytes # 0.3 L (1.0-4.8) k/uL Assessment and Plan Assessment: Assessment and Plan Plan: 1 left hip fracture: Patient is medically clear for surgery, review EKG and lab are all within normal limits, patient comorbidity is very low currently I don't see any reason to do any further investigation before this type of surgery. Will use post surgery DVT GI and pulmonary prophylaxis, patient will be watch hemodynamically after surgery. Will require more physical therapy and more support after surgery as well. 2 history of multiple sclerosis: Continue his current medication patient has been seen neurology on regular basis. 3 history of asthma: With no flareup lately patient can be on Ventolin inhaler on-demand as needed. 4 BPH with no sign of prostate cancer: Patient has been on tamsulosin, if fully catheter inserted during surgery we have slight concern about urinary retention afterward we'll might double the tamsulosin and use Proscar if needed after surgery. 5 mild hyperglycemia: Will watch blood sugar and repeat A1c with his blood work and maybe follow A1c and diabetic management as an outpatient if needed. 6 GI prophylaxis: Patient will be on Pepcid 20 mg daily. 7 DVT prophylaxis: aspirin 325 mg twice daily.. 8. Urinary retention requiring Siddiqui catheter placement. Flomax increased to 0.4 mg twice daily. Consult with Dr. Marshall appreciated 9. Await the transfer to [facility] for inpatient rehab.
[2018-02-06] MEDS: MULTIVITAMINS, THERA 1 EACH TAB PO SCH (12:40)
[2018-02-06] MEDS: ACETAMINOPHEN TAB 325 MG TAB PO PRN (14:54)
[2018-02-06] MEDS: SENNOSIDES-DOCUSATE SODIUM 1 EACH TAB PO SCH (20:42)
[2018-02-07 07:22] LABS: Basophils % (A) 0 %; Eosinophils # (A) 0.2 k/uL (0-0.7); Eosinophils % (A) 4 %; HCT 35.9 % (39.0-53.0); HGB 11.7 gm/dL (13.0-17.5); Lymphocytes # (A) 0.2 k/uL (1.0-4.8); Lymphocytes % (A) 4 %; MCH 30.3 pg (25.0-35.0); MCHC 32.7 g/dL (31.0-37.0); MCV 92.7 fL (80.0-100.0); Mean Platelet Volume 7.4; Monocytes # (A) 0.5 k/uL (0-1.0); Monocytes % (A) 8 %; Neutrophils # (A) 5.5 k/uL (1.3-7.7); Neutrophils % (A) 83 %; Platelet Count 171 k/uL (150-450); RBC 3.88 m/uL (4.30-5.90); RDW 12.5 % (11.5-15.5); WBC 6.6 k/uL (3.8-10.6)
[2018-02-07] MEDS: ACETAMINOPHEN TAB 325 MG TAB PO PRN ×2 (08:03→12:04)
[2018-02-07] MEDS: ASPIRIN 325 MG TAB PO SCH ×2 (08:04→22:43)
[2018-02-07] MEDS: FINGOLIMOD HCL 0.5 MG PO SCH (08:04)
[2018-02-07] MEDS: TAMSULOSIN 0.4 MG CAP.ER.24H PO SCH ×3 (08:05→22:43)
--- NOTE | 2018-02-07 10:56 | P.PN ---
Subjective Progress Note Date: 02/07/18 Principal diagnosis: Status post left hip hemiarthroplasty This is a 67 year-old male post left hip hemiarthroplasty. This is post-op day 3. The patient was evaluated at the bedside today. The patient denies nausea, vomiting, abdominal pain, shortness of breath, and chest pain this morning. He states has pain is controlled at this time. The patient has been up with physical therapy. He did require recatheterization due to urinary retention and Dr. Marshall is on the case. Dr. Marshall is suggesting a couple more days with a Siddiqui catheter. We are awaiting possible inpatient rehab placement at [facility]. Objective - Vital Signs Vital signs: Vital Signs Temp 98.2 F 02/07/18 01:23 Pulse 94 02/07/18 01:23 Resp 18 02/07/18 01:23 BP 117/61 02/07/18 01:23 Pulse Ox 97 02/06/18 20:35 Intake & Output 02/06/18 02/07/18 02/07/18 18:59 06:59 18:59 Intake Total 1030 1040 220 Output Total 620 Balance 410 1040 220 Intake: Oral 1030 1040 220 Output: Urine 620 Straight 620 Other: Voiding Method Indwelling Catheter Indwelling Catheter Indwelling Catheter # Voids 1 - Exam The patient does not appear in acute distress. Alert and orientated x3. Dressing is clean dry and intact. Incision appears fine with no erythema or active drainage. Calf is soft and nontender. Good foot and ankle motion without difficulty. Sensation and circulatory status is intact. - Labs CBC & Chem 7: 02/07/18 06:32 02/03/18 17:37 Labs: Abnormal Lab Results - Last 24 Hours (Table) 02/07/18 Range/Units 06:32 RBC 3.88 L (4.30-5.90) m/uL Hgb 11.7 L (13.0-17.5) gm/dL Hct 35.9 L (39.0-53.0) % Lymphocytes # 0.2 L (1.0-4.8) k/uL Assessment and Plan (1) Status post hip hemiarthroplasty Current Visit: Yes Status: Acute Code(s): Z96.649 - PRESENCE OF UNSPECIFIED ARTIFICIAL HIP JOINT SNOMED Code(s): 291534622 (2) Closed left hip fracture Current Visit: Yes Status: Acute Priority: Medium Code(s): S72.002A - FRACTURE OF UNSP PART OF NECK OF LEFT FEMUR, INIT SNOMED Code(s): 386089089 (3) Multiple sclerosis Current Visit: No Status: Acute Priority: Medium Code(s): G35 - MULTIPLE SCLEROSIS SNOMED Code(s): 51244844 Plan: 1. Continue pain control 2. Anticoagulation with Aspirin 3. Continue physical therapy and ambulation 4. Anticipate discharge to inpatient rehab upon approval, likely tomorrow.
[2018-02-07] MEDS: MULTIVITAMINS, THERA 1 EACH TAB PO SCH (11:13)
--- NOTE | 2018-02-07 11:56 | P.PN ---
Subjective Progress Note Date: 02/07/18 The patient continues to improve. He is up. He is awake and alert. I will remove his catheter today her for a voiding trial as he is going to [facility] for rehab inpatient tomorrow. Objective - Vital Signs Vital signs: Vital Signs Temp 98.2 F 02/07/18 01:23 Pulse 94 02/07/18 01:23 Resp 18 02/07/18 01:23 BP 117/61 02/07/18 01:23 Pulse Ox 97 02/06/18 20:35 Intake & Output 02/06/18 02/07/18 02/07/18 18:59 06:59 18:59 Intake Total 1030 1040 220 Output Total 620 Balance 410 1040 220 Intake: Oral 1030 1040 220 Output: Urine 620 Straight 620 Other: Voiding Method Indwelling Catheter Indwelling Catheter Indwelling Catheter # Voids 1 - Labs CBC & Chem 7: 02/07/18 06:32 02/03/18 17:37 Labs: Abnormal Lab Results - Last 24 Hours (Table) 02/07/18 Range/Units 06:32 RBC 3.88 L (4.30-5.90) m/uL Hgb 11.7 L (13.0-17.5) gm/dL Hct 35.9 L (39.0-53.0) % Lymphocytes # 0.2 L (1.0-4.8) k/uL
--- NOTE | 2018-02-07 19:57 | P.PN ---
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 He has been doing well last year with no major complaint of complication, he seen a neurologist in [facility] who manages MS on regular basis patient continued to have slight weakness in the left side along with mild atrophy in the left upper extremity as well. He walk with limp related to his MS weakness. Patient was doing well until yesterday when he turn it home and tripped in a rock end up falling on his left hip with worsening pain and discomfort in the inner part of the groin area in not been able to put full weight on the hip. Patient ended up going to the orthopedic associated office and seen Dr. Mccarthy. X-ray of the hip showed hip fracture. Patient was sent as a direct admit to the hospital from Dr. Mccarthy and prepare for hemiarthroplasty today 02/04/2018. Patient doesn't have any other injury no other major complaint has been doing well has not been hospitalized or have any major event in the last year. 02/05: patient required Siddiqui catheter placement last evening for urinary retention. Flomax will be increased to twice daily. Consult with Dr. Muro added this morning for possible subacute rehab. Patient is requesting consult with Dr. Marhsall. Pain is currently controlled. No nausea or vomiting. Patient' s is at the bedside and has been updated. All questions have been answered. 02/06: he is sitting up in chair in no apparent distress he denies any chest pain , shortness breath, he was receiving [place] for his pain management, he was seen in consultation by physical therapy and rehabilitation and likely will be transferred to [facility] for physical therapy on Thursday. 02/07 : patient is sitting up in chair and he complains of increased muscle spasm of the left lower extremity, also his pain is well controlled, he denies any chest pain or shortness of breath, he will keep the Siddiqui catheter for another 1-2 days before voiding trial. Review of Systems CONSTITUTIONAL: Well-developed no acute respiratory distress. Has history of MS EYES: No icterus sclerae, no conjunctivitis. EARS, NOSE, MOUTH, THROAT, and FACE: No sore throat, lymphadenopathy, carotid bruits or deformity. RESPIRATORY: No SOB cough or wheezes. CARDIOVASCULAR: No CP, Palpitation, PND, Orthopnea, or angina. GASTROINTESTINAL: No Abd pain, Nausea or vomiting, no Diarrhea or constipation, No GI Bleed, no distention or masses. GENITOURINARY: Negative for Hematuria or UTI, no kidney stones. INTEGUMENT/BREAST: Left hip fracture, weakness in the left side with mild atrophy and contraction left upper extremity as well. HEMATOLOGIC/LYMPHATIC: Negative for bleed or purpura. MUSCULOSKELTAL: More muscle contraction discomfort in the hip and left upper extremity contraction. NEURLOGICAL: No LOC, Sz or syncope, blurred vision dizziness or abnormality weakness in the left side from MS. BEHAVIORAL/PSYCH: Negative. ENDOCRINE: Negative. Objective - Vital Signs Vital signs: Vital Signs Temp 98.2 F 02/07/18 01:23 Pulse 94 02/07/18 01:23 Resp 18 02/07/18 01:23 BP 117/61 02/07/18 01:23 Pulse Ox 97 02/06/18 20:35 Intake & Output 02/06/18 02/07/18 02/07/18 18:59 06:59 18:59 Intake Total 1030 1040 Output Total 620 Balance 410 1040 Intake: Oral 1030 1040 Output: Urine 620 Straight 620 Other: Voiding Method Indwelling Catheter Indwelling Catheter # Voids 1 - Exam - Exam General Appearance: Alert, cooperative, no distress, appears stated age. He is comfortable in recliner. Patient's is at the bedside. Neck HEENT: Supple, no lymphadenopathy, no thyroid enlargement, no carotid bruits. Lungs: Clear to auscultation without crackles or wheezes no rhonchi, no deformity. Chest Wall: Chest wall normal expansion with deep inspiration no tenderness and no deformity was found on exam, no costochondral pain or discomfort. Heart: Regular rate and rhythm, S1, S2 normal, no murmur, rub or gallop. Back: Symmetric, no curvature, ROM normal, no CVA tenderness. Abdomen: Soft, non-tender, bowel sounds active all four quadrants, no masses, no organomegaly. Extremities: Slight contraction in the left upper extremity with mild weakness, significant weakness in the left lower extremity. dressing in place to the lateral left hip. No significant bleeding or drainage. Pulses: 2+ and symmetric. Skin: Skin color, texture, tugor normal, no rashes or lesions. Neurologic: Alert oriented x3 cranial nerves II through XII intact, significant motor deficits in the left side compared to the right side from MS with mild abnormal balance and gait. - Labs CBC & Chem 7: 02/07/18 06:32 02/03/18 17:37 Labs: Abnormal Lab Results - Last 24 Hours (Table) 02/06/18 Range/Units 07:30 RBC 4.05 L (4.30-5.90) m/uL Hgb 12.2 L (13.0-17.5) gm/dL Hct 38.3 L (39.0-53.0) % Plt Count 136 L (150-450) k/uL Lymphocytes # 0.3 L (1.0-4.8) k/uL Assessment and Plan Assessment: Assessment and Plan Plan: 1 Left hip fracture S/P left hemiarthroplasty. we will continue with current pain management and will continue with Valium for muscle spasm, patient will likely go to [facility] for Inpatient Rehabilitation. 2 history of multiple sclerosis: Continue his current medication patient has been seen neurology on regular basis. 3 history of asthma: With no flareup lately patient can be on Ventolin inhaler on-demand as needed. 4 BPH with urinary retention. we will continue with Siddiqui catheter along with Flomax, likely will attempt a void trial in 24-48 hours. 5 mild hyperglycemia: Will watch blood sugar and repeat A1c with his blood work and maybe follow A1c and diabetic management as an outpatient if needed. 6 GI prophylaxis: Patient will be on Pepcid 20 mg daily. 7 DVT prophylaxis: aspirin 325 mg twice daily.. 8. Urinary retention requiring Siddiqui catheter placement. Flomax increased to 0.4 mg twice daily. 9. Await the transfer to [facility] for inpatient rehab.
[2018-02-07] MEDS: SENNOSIDES-DOCUSATE SODIUM 1 EACH TAB PO SCH (22:43)
[2018-02-07] MEDS: MAGNESIUM HYDROXIDE 2,400 MG/10 ML CUP PO PRN (22:44)
[2018-02-07] MEDS: HYDROcodone/APAP 5-325MG 1 EACH TAB PO PRN (22:44)
--- NOTE | 2018-02-08 07:40 | P.PN ---
Subjective Progress Note Date: 02/08/18 The catheter was removed yesterday. He seems to be voiding without difficulty. He's been instructed to contact us with further problems arise. Objective - Vital Signs Vital signs: Vital Signs Temp 98.4 F 02/08/18 01:21 Pulse 71 02/08/18 01:21 Resp 16 02/08/18 01:21 BP 121/64 02/08/18 01:21 Pulse Ox 96 02/08/18 01:21 Intake & Output 02/07/18 02/08/18 02/08/18 18:59 06:59 18:59 Intake Total 780 1080 Output Total 600 1470 Balance 180 -390 Intake: Oral 780 1080 Output: Urine 600 1470 Other: Voiding Method Toilet Toilet # Voids 2 2 # Bowel Movements 1 - Labs CBC & Chem 7: 02/07/18 06:32 02/03/18 17:37 Labs: Abnormal Lab Results - Last 24 Hours (Table) 02/07/18 Range/Units 06:32 RBC 3.88 L (4.30-5.90) m/uL Hgb 11.7 L (13.0-17.5) gm/dL Hct 35.9 L (39.0-53.0) % Lymphocytes # 0.2 L (1.0-4.8) k/uL
[2018-02-08] MEDS: ASPIRIN 325 MG TAB PO SCH ×2 (08:04→22:44)
[2018-02-08] MEDS: TAMSULOSIN 0.4 MG CAP.ER.24H PO SCH ×2 (08:04→22:44)
[2018-02-08] MEDS: FINGOLIMOD HCL 0.5 MG PO SCH (08:04)
[2018-02-08] MEDS: MULTIVITAMINS, THERA 1 EACH TAB PO SCH (08:04)
[2018-02-08] MEDS: ACETAMINOPHEN TAB 325 MG TAB PO PRN ×2 (08:06→12:58)
--- NOTE | 2018-02-08 09:11 | P.DS ---
Providers Date of admission: 02/03/18 16:27 Expected date of discharge: 02/08/18 Attending physician: Isra Mccarthy Consults: 02/03/18 17:22 Consult Physician Stat Consulting Provider: Juan Dee Consult Reason/Comments: pre op clearance, medical management Do you want consulting provider notified?: Yes 02/05/18 08:22 Consult Physician Routine Consulting Provider: Ed Muro Consult Reason/Comments: inpat rehab Do you want consulting provider notified?: Yes 02/05/18 09:26 Consult Physician Routine Consulting Provider: Dwayne Marshall Consult Reason/Comments: urinary retention Do you want consulting provider notified?: Yes Primary care physician: Isra Mccarthy - Discharge Diagnosis(es) (1) Closed left hip fracture Patient was admitted to the OR on 02/04/2018 to undergo a left hip hemiarthroplasty after a fall at home resulted in a left hip femoral neck fracture. He underwent the above procedure which he tolerated well without complication. Postoperative hospital course has remained without complication with the exception of some urinary retention which has resolved. On day of discharge he is afebrile, vital signs stable, labs within acceptable ranges, tolerating by mouth meds and diet, voiding without difficulty, positive flatus, denies abdominal pain or calf pain, pain is controlled on oral pain medication and has no new complaints. Wound is benign, neurovascular status is intact, calf is soft and nontender, abdomen soft and nontender. Review of systems is negative for numbness, tingling, fever, chills, chest pain, shortness breath, nausea, vomiting, dizziness, headaches, slurred speech or other. Current Visit: Yes Status: Acute Priority: Medium (2) Multiple sclerosis Current Visit: No Status: Acute Priority: Medium Plan - Discharge Summary Discharge Rx Participant: No New Discharge Prescriptions: New Aspirin 325 mg PO BID #60 tab Docusate [Colace] 100 mg PO BID #60 capsule HYDROcodone/APAP 7.5-325MG [[place] 7.5-325] 1 - 2 each PO Q6HR PRN #56 tab PRN Reason: Pain No Action Tamsulosin [Flomax] 0.4 mg PO HS Fingolimod HCl [Gilenya] 0.5 mg PO DAILY Multivit-Min/FA/Lycopen/Lutein [Centrum Silver Men Tablet] 1 tab PO DAILY Discharge Medication List Fingolimod HCl [Gilenya] 0.5 mg PO DAILY 02/03/18 [History] Multivit-Min/FA/Lycopen/Lutein [Centrum Silver Men Tablet] 1 tab PO DAILY [History] Tamsulosin [Flomax] 0.4 mg PO HS 02/03/18 [History] Aspirin 325 mg PO BID #60 tab 02/05/18 [Rx] Docusate [Colace] 100 mg PO BID #60 capsule 02/05/18 [Rx] HYDROcodone/APAP 7.5-325MG [[place] 7.5-325] 1 - 2 each PO Q6HR PRN #56 tab [Rx] Follow up Appointment(s)/Referral(s): Isra Mccarthy MD [Primary Care Provider] - 2 Weeks Activity/Diet/Wound Care/Special Instructions: Keep wound clean and dry Take meds as directed Follow-up with Dr. Mccarthy in office Weight bear as tolerated May shower in 3 days if no bleeding Discharge Disposition: TRANSFER TO SNF/ECF
[2018-02-08 09:49] LABS: Basophils % (A) 0 %; Eosinophils # (A) 0.2 k/uL (0-0.7); Eosinophils % (A) 4 %; Lymphocytes # (A) 0.3 k/uL (1.0-4.8); Lymphocytes % (A) 6 %; MCHC 33.4 g/dL (31.0-37.0); MCV 92.8 fL (80.0-100.0); Monocytes # (A) 0.4 k/uL (0-1.0); Monocytes % (A) 9 %; Neutrophils # (A) 3.9 k/uL (1.3-7.7); Neutrophils % (A) 79 %; Platelet Count 214 k/uL (150-450); RBC 3.88 m/uL (4.30-5.90); RDW 12.4 % (11.5-15.5); WBC 4.9 k/uL (3.8-10.6)
[2018-02-08 10:05] LABS: ALT 28 U/L (21-72); AST 33 U/L (17-59); Albumin 2.9 g/dL (3.5-5.0); Alkaline Phosphatase 86 U/L (38-126); Anion Gap 8 mmol/L; Blood Urea Nitrogen 12 mg/dL (9-20); Calcium 8.7 mg/dL (8.4-10.2); Carbon Dioxide 28 mmol/L (22-30); Chloride 104 mmol/L (98-107); Glucose 129 mg/dL (74-99); Potassium 4.1 mmol/L (3.5-5.1); Sodium 140 mmol/L (137-145); Total Bilirubin 0.9 mg/dL (0.2-1.3); Total Protein 5.4 g/dL (6.3-8.2)
--- NOTE | 2018-02-08 14:57 | P.PN ---
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 He has been doing well last year with no major complaint of complication, he seen a neurologist in [facility] who manages MS on regular basis patient continued to have slight weakness in the left side along with mild atrophy in the left upper extremity as well. He walk with limp related to his MS weakness. Patient was doing well until yesterday when he turn it home and tripped in a rock end up falling on his left hip with worsening pain and discomfort in the inner part of the groin area in not been able to put full weight on the hip. Patient ended up going to the orthopedic associated office and seen Dr. Mccarthy. X-ray of the hip showed hip fracture. Patient was sent as a direct admit to the hospital from Dr. Mccarthy and prepare for hemiarthroplasty today 02/04/2018. Patient doesn't have any other injury no other major complaint has been doing well has not been hospitalized or have any major event in the last year. 02/05: patient required Siddiqui catheter placement last evening for urinary retention. Flomax will be increased to twice daily. Consult with Dr. Muro added this morning for possible subacute rehab. Patient is requesting consult with Dr. Marshall. Pain is currently controlled. No nausea or vomiting. Patient' s is at the bedside and has been updated. All questions have been answered. 02/06: he is sitting up in chair in no apparent distress he denies any chest pain , shortness breath, he was receiving [place] for his pain management, he was seen in consultation by physical therapy and rehabilitation and likely will be transferred to [facility] for physical therapy on Thursday. 02/07 : patient is sitting up in chair and he complains of increased muscle spasm of the left lower extremity, also his pain is well controlled, he denies any chest pain or shortness of breath, he will keep the Siddiqui catheter for another 1-2 days before voiding trial. 02/08: Siddiqui catheter was removed yesterday per Dr. Marshall's orders and patient has been voiding sufficiently ever since. He states he has had a bowel movement and constipation has been relieved. His pain is currently well controlled. He is scheduled for transfer to [facility] for inpatient rehab today. Patient's is at the bedside and all questions are answered. Patient is being discharged in stable condition. Patient will be followed at [facility]. Review of Systems CONSTITUTIONAL: Well-developed no acute respiratory distress. Has history of MS EYES: No icterus sclerae, no conjunctivitis. EARS, NOSE, MOUTH, THROAT, and FACE: No sore throat, lymphadenopathy, carotid bruits or deformity. RESPIRATORY: No SOB cough or wheezes. CARDIOVASCULAR: No CP, Palpitation, PND, Orthopnea, or angina. GASTROINTESTINAL: No Abd pain, Nausea or vomiting, no Diarrhea or constipation, No GI Bleed, no distention or masses. GENITOURINARY: Negative for Hematuria or UTI, no kidney stones. INTEGUMENT/BREAST: Left hip fracture-pain control, weakness in the left side with mild atrophy and contraction left upper extremity as well. HEMATOLOGIC/LYMPHATIC: Negative for bleed or purpura. MUSCULOSKELTAL: More muscle contraction discomfort in the hip and left upper extremity contraction. NEURLOGICAL: No LOC, Sz or syncope, blurred vision dizziness or abnormality weakness in the left side from MS. BEHAVIORAL/PSYCH: Negative. ENDOCRINE: Negative. Objective - Vital Signs Vital signs: Vital Signs Temp 98.4 F 02/08/18 01:21 Pulse 71 02/08/18 01:21 Resp 16 02/08/18 01:21 BP 121/64 02/08/18 01:21 Pulse Ox 96 02/08/18 01:21 Intake & Output 02/07/18 02/08/18 02/08/18 18:59 06:59 18:59 Intake Total 780 1080 Output Total 600 1470 Balance 180 -390 Intake: Oral 780 1080 Output: Urine 600 1470 Other: Voiding Method Toilet Toilet # Voids 2 2 # Bowel Movements 1 - Exam General Appearance: Alert, cooperative, no distress, appears stated age. He is comfortable seated on the edge of the bed. Patient's is at the bedside. Neck HEENT: Supple, no lymphadenopathy, no thyroid enlargement, no carotid bruits. Lungs: Clear to auscultation without crackles or wheezes no rhonchi, no deformity. Chest Wall: Chest wall normal expansion with deep inspiration no tenderness and no deformity was found on exam, no costochondral pain or discomfort. Heart: Regular rate and rhythm, S1, S2 normal, no murmur, rub or gallop. Back: Symmetric, no curvature, ROM normal, no CVA tenderness. Abdomen: Soft, non-tender, bowel sounds active all four quadrants, no masses, no organomegaly. Extremities: Slight contraction in the left upper extremity with mild weakness, significant weakness in the left lower extremity. dressing in place to the lateral left hip. No significant bleeding or drainage. Pulses: 2+ and symmetric. Skin: Skin color, texture, tugor normal, no rashes or lesions. Neurologic: Alert oriented x3 cranial nerves II through XII intact, significant motor deficits in the left side compared to the right side from MS with mild abnormal balance and gait. - Labs CBC & Chem 7: 02/08/18 09:10 02/08/18 09:10 Assessment and Plan Plan: 1 left hip fracture: Patient is medically clear for surgery, review EKG and lab are all within normal limits, patient comorbidity is very low currently I don't see any reason to do any further investigation before this type of surgery. Will use post surgery DVT GI and pulmonary prophylaxis, patient will be watch hemodynamically after surgery. Will require more physical therapy and more support after surgery as well. 2 history of multiple sclerosis: Continue his current medication patient has been seen neurology on regular basis. 3 history of asthma: With no flareup lately patient can be on Ventolin inhaler on-demand as needed. 4 BPH with no sign of prostate cancer: Patient has been on tamsulosin increase to twice daily, Siddiqui catheter. 5 mild hyperglycemia. 6 GI prophylaxis: Patient will be on Pepcid 20 mg daily. 7 DVT prophylaxis: aspirin 325 mg twice daily.. 8. Urinary retention requiring Siddiqui catheter placement. Flomax increased to 0.4 mg twice daily. Consult with Dr. Marshall appreciated. Siddiqui has been removed. CODE STATUS: Full code. Discharge plan: Subacute rehab today. Impression and plan of care have been directed as dictated by the signing physician. Daisy Carty nurse practitioner acting as scribe for signing physician.
[2018-02-08] MEDS: HYDROcodone/APAP 5-325MG 1 EACH TAB PO PRN ×2 (16:39→22:45)
[2018-02-08] MEDS: SENNOSIDES-DOCUSATE SODIUM 1 EACH TAB PO SCH (22:44)
[2018-02-09] MEDS: ACETAMINOPHEN TAB 325 MG TAB PO PRN (02:33)
[2018-02-09] MEDS: FINGOLIMOD HCL 0.5 MG PO SCH (08:19)
[2018-02-09] MEDS: TAMSULOSIN 0.4 MG CAP.ER.24H PO SCH ×2 (08:22→20:17)
[2018-02-09] MEDS: ASPIRIN 325 MG TAB PO SCH ×2 (08:22→20:17)
[2018-02-09] MEDS: MULTIVITAMINS, THERA 1 EACH TAB PO SCH (08:22)
[2018-02-09] MEDS: MAGNESIUM HYDROXIDE 2,400 MG/10 ML CUP PO PRN (08:22)
[2018-02-09] MEDS: HYDROcodone/APAP 5-325MG 1 EACH TAB PO PRN ×3 (11:14→21:50)
--- NOTE | 2018-02-09 11:16 | P.PN ---
Subjective Progress Note Date: 02/09/18 Principal diagnosis: Left hip fracture Patient is seen at bedside this morning. He is postop day #5 from left hip magnolia arthroplasty. He has improving pain at surgical site as expected. He denies any new complaints. He denies numbness, tingling or calf pain. Review of systems is negative for fever, chills, chest pain, shortness of breath or other Objective - Vital Signs Vital signs: Vital Signs Temp 98.2 F 02/09/18 08:19 Pulse 78 02/09/18 08:19 Resp 17 02/09/18 08:20 BP 133/73 02/09/18 08:19 Pulse Ox 98 02/09/18 08:19 Intake & Output 02/08/18 02/09/18 02/09/18 18:59 06:59 18:59 Intake Total 240 2160 380 Output Total 300 Balance -60 2160 380 Intake: Oral 240 2160 380 Output: Urine 300 Other: Voiding Method Toilet Toilet Urinal Urinal # Voids 2 1 1 # Bowel Movements 1 - Exam Inspection reveals a benign surgical wound. There is no active bleeding or drainage. Neurovascular status is intact throughout the lower extremity with motor and sensation fully intact. Calf is soft and nontender. 2+ dorsalis pedis pulse and less than 2 second cap refill is present. - Constitutional General appearance: Present: no acute distress - Labs CBC & Chem 7: 02/08/18 09:10 02/08/18 09:10 Assessment and Plan (1) Closed left hip fracture Narrative/Plan: He was denied inpatient rehab and now awaiting subacute ECF placement. He will continue with routine postop orthopedic protocol including pain management, wound care, PT, DVT prophylaxis and medical management. Expect that he will transfer to ECF today/tomorrow. Current Visit: Yes Status: Acute Priority: Medium Code(s): S72.002A - FRACTURE OF UNSP PART OF NECK OF LEFT FEMUR, INIT SNOMED Code(s): 641923019 (2) Multiple sclerosis Current Visit: No Status: Acute Priority: Medium Code(s): G35 - MULTIPLE SCLEROSIS SNOMED Code(s): 19846862
--- NOTE | 2018-02-09 15:05 | P.PN ---
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 He has been doing well last year with no major complaint of complication, he seen a neurologist in [facility] who manages MS on regular basis patient continued to have slight weakness in the left side along with mild atrophy in the left upper extremity as well. He walk with limp related to his MS weakness. Patient was doing well until yesterday when he turn it home and tripped in a rock end up falling on his left hip with worsening pain and discomfort in the inner part of the groin area in not been able to put full weight on the hip. Patient ended up going to the orthopedic associated office and seen Dr. Mccarthy. X-ray of the hip showed hip fracture. Patient was sent as a direct admit to the hospital from Dr. Mccarthy and prepare for hemiarthroplasty today 02/04/2018. Patient doesn't have any other injury no other major complaint has been doing well has not been hospitalized or have any major event in the last year. 02/05: patient required Siddiqui catheter placement last evening for urinary retention. Flomax will be increased to twice daily. Consult with Dr. Muro added this morning for possible subacute rehab. Patient is requesting consult with Dr. Marshall. Pain is currently controlled. No nausea or vomiting. Patient' s is at the bedside and has been updated. All questions have been answered. 02/06: he is sitting up in chair in no apparent distress he denies any chest pain , shortness breath, he was receiving [place] for his pain management, he was seen in consultation by physical therapy and rehabilitation and likely will be transferred to [facility] for physical therapy on Thursday. 02/07 : patient is sitting up in chair and he complains of increased muscle spasm of the left lower extremity, also his pain is well controlled, he denies any chest pain or shortness of breath, he will keep the Siddiqui catheter for another 1-2 days before voiding trial. 02/08: Siddiqui catheter was removed yesterday per Dr. Marshall's orders and patient has been voiding sufficiently ever since. He states he has had a bowel movement and constipation has been relieved. His pain is currently well controlled. He is scheduled for transfer to [facility] for inpatient rehab today. Patient's is at the bedside and all questions are answered. Patient is being discharged in stable condition. Patient will be followed at [facility]. 02/09: Patient's discharge was held over the weekend as inpatient rehab does not accept patients until Thursday. On Thursday, insurance has declined coverage for inpatient rehab at [facility]. The patient is now waiting for a bed at subacute rehab. He has been voiding without difficulty. He has had a bowel movement. He has been working with physical therapy. He does have weakness on the left leg. Review of Systems CONSTITUTIONAL: Well-developed no acute respiratory distress. EYES: No icterus sclerae, no conjunctivitis. EARS, NOSE, MOUTH, THROAT, and FACE: No sore throat, lymphadenopathy, carotid bruits or deformity. RESPIRATORY: No SOB cough or wheezes. CARDIOVASCULAR: No CP, Palpitation, PND, Orthopnea, or angina. GASTROINTESTINAL: No Abd pain, Nausea or vomiting, no Diarrhea or constipation, No GI Bleed, no distention or masses. GENITOURINARY: Negative for Hematuria or UTI, no kidney stones. INTEGUMENT/BREAST: Left hip fracture-pain control, weakness in the left side with mild atrophy and contraction left upper extremity as well. HEMATOLOGIC/LYMPHATIC: Negative for bleed or purpura. MUSCULOSKELTAL: More muscle contraction discomfort in the hip and left upper extremity contraction. NEURLOGICAL: No LOC, Sz or syncope, blurred vision dizziness or abnormality weakness in the left side from MS. BEHAVIORAL/PSYCH: Negative. ENDOCRINE: Negative. Objective - Vital Signs Vital signs: Vital Signs Temp 98.2 F 02/09/18 08:19 Pulse 78 02/09/18 08:19 Resp 17 02/09/18 08:19 BP 133/73 02/09/18 08:19 Pulse Ox 98 02/09/18 08:19 Intake & Output 02/08/18 02/09/18 02/09/18 18:59 06:59 18:59 Intake Total 240 2160 Output Total 300 Balance -60 2160 Intake: Oral 240 2160 Output: Urine 300 Other: Voiding Method Toilet Urinal # Voids 2 1 # Bowel Movements 1 - Exam General Appearance: Alert, cooperative, no distress, appears stated age. He is comfortable seated in recliner Neck HEENT: Supple, no lymphadenopathy, no thyroid enlargement, no carotid bruits. Lungs: Clear to auscultation without crackles or wheezes no rhonchi, no deformity. Chest Wall: Chest wall normal expansion with deep inspiration no tenderness and no deformity was found on exam, no costochondral pain or discomfort. Heart: Regular rate and rhythm, S1, S2 normal, no murmur, rub or gallop. Back: Symmetric, no curvature, ROM normal, no CVA tenderness. Abdomen: Soft, non-tender, bowel sounds active all four quadrants, no masses, no organomegaly. Extremities: Slight contraction in the left upper extremity with mild weakness, significant weakness in the left lower extremity. dressing in place to the lateral left hip. No significant bleeding or drainage. Pulses: 2+ and symmetric. Skin: Skin color, texture, tugor normal, no rashes or lesions. Neurologic: Alert oriented x3 cranial nerves II through XII intact, significant motor deficits in the left side compared to the right side from MS with mild abnormal balance and gait. - Labs CBC & Chem 7: 02/08/18 09:10 02/08/18 09:10 Assessment and Plan Plan: 1 left hip fracture: Patient is medically clear for surgery, review EKG and lab are all within normal limits, patient comorbidity is very low currently I don't see any reason to do any further investigation before this type of surgery. Will use post surgery DVT GI and pulmonary prophylaxis, patient will be watch hemodynamically after surgery. Will require more physical therapy and more support after surgery as well. 2 history of multiple sclerosis: Continue his current medication patient has been seen neurology on regular basis. 3 history of asthma: With no flareup lately patient can be on Ventolin inhaler on-demand as needed. 4 BPH with no sign of prostate cancer: Patient has been on tamsulosin increase to twice daily, Siddiqui catheter. 5 mild hyperglycemia. 6 GI prophylaxis: Patient will be on Pepcid 20 mg daily. 7 DVT prophylaxis: aspirin 325 mg twice daily.. 8. Urinary retention requiring Siddiqui catheter placement, resolved. Flomax increased to 0.4 mg twice daily. Consult with Dr. Marshall appreciated. Siddiqui has been removed. CODE STATUS: Full code. Discharge plan: Subacute rehab today. Impression and plan of care have been directed as dictated by the signing physician. Daisy Carty nurse practitioner acting as scribe for signing physician.
[2018-02-09] MEDS: SENNOSIDES-DOCUSATE SODIUM 1 EACH TAB PO SCH (20:17)
[2018-02-10 00:21] VITALS: RESP 16
[2018-02-10] MEDS: ACETAMINOPHEN TAB 325 MG TAB PO PRN (05:50)
[2018-02-10] MEDS: MULTIVITAMINS, THERA 1 EACH TAB PO SCH (09:38)
[2018-02-10] MEDS: ASPIRIN 325 MG TAB PO SCH (09:38)
[2018-02-10] MEDS: TAMSULOSIN 0.4 MG CAP.ER.24H PO SCH (09:38)
[2018-02-10] MEDS: HYDROcodone/APAP 5-325MG 1 EACH TAB PO PRN (09:38)
[2018-02-10] MEDS: FINGOLIMOD HCL 0.5 MG PO SCH (09:38)
[2018-02-10 11:07] VITALS: BP 122/60; PULSE 75; TEMP 97.9
--- NOTE | 2018-02-10 12:27 | P.PN ---
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 He has been doing well last year with no major complaint of complication, he seen a neurologist in [facility] who manages MS on regular basis patient continued to have slight weakness in the left side along with mild atrophy in the left upper extremity as well. He walk with limp related to his MS weakness. Patient was doing well until yesterday when he turn it home and tripped in a rock end up falling on his left hip with worsening pain and discomfort in the inner part of the groin area in not been able to put full weight on the hip. Patient ended up going to the orthopedic associated office and seen Dr. Mccarthy. X-ray of the hip showed hip fracture. Patient was sent as a direct admit to the hospital from Dr. Mccarthy and prepare for hemiarthroplasty today 02/04/2018. Patient doesn't have any other injury no other major complaint has been doing well has not been hospitalized or have any major event in the last year. 02/05: patient required Siddiqui catheter placement last evening for urinary retention. Flomax will be increased to twice daily. Consult with Dr. Muro added this morning for possible subacute rehab. Patient is requesting consult with Dr. Marshall. Pain is currently controlled. No nausea or vomiting. Patient' s is at the bedside and has been updated. All questions have been answered. 02/06: he is sitting up in chair in no apparent distress he denies any chest pain , shortness breath, he was receiving [place] for his pain management, he was seen in consultation by physical therapy and rehabilitation and likely will be transferred to [facility] for physical therapy on Thursday. 02/07 : patient is sitting up in chair and he complains of increased muscle spasm of the left lower extremity, also his pain is well controlled, he denies any chest pain or shortness of breath, he will keep the Siddiqui catheter for another 1-2 days before voiding trial. 02/08: Siddiqui catheter was removed yesterday per Dr. Marshall's orders and patient has been voiding sufficiently ever since. He states he has had a bowel movement and constipation has been relieved. His pain is currently well controlled. He is scheduled for transfer to [facility] for inpatient rehab today. Patient's is at the bedside and all questions are answered. Patient is being discharged in stable condition. Patient will be followed at [facility]. 02/09: Patient's discharge was held over the weekend as inpatient rehab does not accept patients until Thursday. On Thursday, insurance has declined coverage for inpatient rehab at [facility]. The patient is now waiting for a bed at subacute rehab. He has been voiding without difficulty. He has had a bowel movement. He has been working with physical therapy. He does have weakness on the left leg. 02/10: There has been delaying discharge due to accept [facility]. Patient has been accepted to [facility] today and will be discharged. No change in medication reconciliation. Patient states his pain is controlled. He has been voiding and having bowel movements without problems. He denies diarrhea. Patient is tolerating diet with no nausea or vomiting. Review of Systems CONSTITUTIONAL: Well-developed no acute respiratory distress. Denies fever, denies chills. EYES: No icterus sclerae, no conjunctivitis. EARS, NOSE, MOUTH, THROAT, and FACE: No sore throat, lymphadenopathy, carotid bruits or deformity. RESPIRATORY: No SOB cough or wheezes. CARDIOVASCULAR: No CP, Palpitation, PND, Orthopnea, or angina. GASTROINTESTINAL: No Abd pain, Nausea or vomiting, no Diarrhea or constipation, No GI Bleed, no distention or masses. GENITOURINARY: Negative for Hematuria or UTI, no kidney stones. INTEGUMENT/BREAST: Left hip fracture-pain control, weakness in the left side with mild atrophy and contraction left upper extremity as well. HEMATOLOGIC/LYMPHATIC: Negative for bleed or purpura. MUSCULOSKELTAL: More muscle contraction discomfort in the hip and left upper extremity contraction. NEURLOGICAL: No LOC, Sz or syncope, blurred vision dizziness or abnormality weakness in the left side from MS. BEHAVIORAL/PSYCH: Negative. ENDOCRINE: Negative. Objective - Vital Signs Vital signs: Vital Signs Temp 98.7 F 02/10/18 00:20 Pulse 70 02/10/18 00:20 Resp 16 02/10/18 00:20 BP 124/67 02/10/18 00:20 Pulse Ox 97 02/10/18 00:20 Intake & Output 02/09/18 02/10/18 02/10/18 18:59 06:59 18:59 Intake Total 620 260 220 Output Total 1350 300 Balance 620 -1090 -80 Intake: Oral 620 260 220 Output: Urine 1350 300 Other: Voiding Method Toilet Toilet Urinal Urinal # Voids 1 2 1 - Exam General Appearance: Alert, cooperative, no distress, appears stated age. He is comfortable seated in recliner. Neck HEENT: Supple, no lymphadenopathy, no thyroid enlargement, no carotid bruits. Lungs: Clear to auscultation without crackles or wheezes no rhonchi, no deformity. Chest Wall: Chest wall normal expansion with deep inspiration no tenderness and no deformity was found on exam, no costochondral pain or discomfort. Heart: Regular rate and rhythm, S1, S2 normal, no murmur, rub or gallop. Back: Symmetric, no curvature, ROM normal, no CVA tenderness. Abdomen: Soft, non-tender, bowel sounds active all four quadrants, no masses, no organomegaly. Extremities: Slight contraction in the left upper extremity with mild weakness, significant weakness in the left lower extremity. dressing in place to the lateral left hip. No significant bleeding or drainage. Pulses: 2+ and symmetric. Skin: Skin color, texture, tugor normal, no rashes or lesions. Neurologic: Alert oriented x3 cranial nerves II through XII intact, significant motor deficits in the left side compared to the right side from MS with mild abnormal balance and gait. - Labs CBC & Chem 7: 02/08/18 09:10 02/08/18 09:10 Assessment and Plan Plan: 1 left hip fracture: Patient is medically clear for surgery, review EKG and lab are all within normal limits, patient comorbidity is very low currently I don't see any reason to do any further investigation before this type of surgery. Will use post surgery DVT GI and pulmonary prophylaxis, patient will be watch hemodynamically after surgery. Will require more physical therapy and more support after surgery as well. 2 history of multiple sclerosis: Continue his current medication patient has been seen neurology on regular basis. 3 history of asthma: With no flareup lately patient can be on Ventolin inhaler on-demand as needed. 4 BPH with no sign of prostate cancer: Patient has been on tamsulosin increase to twice daily, Siddiqui catheter. 5 mild hyperglycemia. 6 GI prophylaxis: Patient will be on Pepcid 20 mg daily. 7 DVT prophylaxis: aspirin 325 mg twice daily. 8. Urinary retention requiring Siddiqui catheter placement, resolved. Flomax increased to 0.4 mg twice daily. Consult with Dr. Marshall appreciated. Siddiqui has been removed. CODE STATUS: Full code. Discharge plan: [place] today. Impression and plan of care have been directed as dictated by the signing physician. Daisy Carty nurse practitioner acting as scribe for signing physician.
== END 2018-02-10 12:08 | DRG 470 ==
LOC: 4SSUR 16:27
PROVIDERS: ADMIT Orthopaedic Surgery Sports Medicine; ATTEND Orthopaedic Surgery Sports Medicine
PROC: 0SRB02A Replacement of Left Hip Joint with Metal on Polyethylene Synthetic Substitute, Uncemented, Open Approach (ICD-10-PCS; principal; 2018-02-04 11:15)
DX: S72.012A Unspecified intracapsular fracture of left femur, initial encounter for closed fracture (principal); G35 Multiple sclerosis; R73.9 Hyperglycemia, unspecified; N40.1 Benign prostatic hyperplasia with lower urinary tract symptoms; M62.838 Other muscle spasm; K59.00 Constipation, unspecified; R33.8 Other retention of urine; Z79.899 Other long term (current) drug therapy; Z87.19 Personal history of other diseases of the digestive system; Z87.09 Personal history of other diseases of the respiratory system; W01.0XXA Fall on same level from slipping, tripping and stumbling without subsequent striking against object, initial encounter; Y92.003 Bedroom of unspecified non-institutional (private) residence as the place of occurrence of the external cause; Z82.3 Family history of stroke; Z82.5 Family history of asthma and other chronic lower respiratory diseases; Z82.49 Family history of ischemic heart disease and other diseases of the circulatory system; Z80.42 Family history of malignant neoplasm of prostate
CPT/HCPCS: 73501; 80053; 83735; 85025; 85610; 88305; 88311; 93005

== ENCOUNTER 2018-11-06 03:47 | Emergency (ER) | payer MEDICARE ==
[2018-11-06 04:11] VITALS: BP 172/85; PULSE 88; RESP 18; TEMP 97.7
--- NOTE | 2018-11-06 04:32 | ED ---
Male Urogenital HPI - General Chief complaint: Urogenital Stated complaint: Urinary Retention Time Seen by Provider: 11/06/18 03:50 Source: patient Mode of arrival: ambulatory Limitations: physical limitation - History of Present Illness Initial comments: This patient is a 68-year-old man who presents with the complaint that he is having suprapubic abdominal pressure and the inability to urinate. He states he has had previous urinary retention which had required catheter to resolve. He states that when the symptoms came on earlier today he had performed self cath at home and did relieve the pressure initially by obtaining a little over 200 mL of urine the first time. He states that symptoms recurred again on the second instance he did not have relief of the symptoms and was not able to obtain much urine at that point. Patient denies fever or chills. No chest pain or dyspnea. No flank or back pain. MD Complaint: other (Urinary retention) Onset/Timin -: days(s) Location: abdomen Severity: moderate Quality: other (Pressure) Consistency: constant Improves with: none Reports: urinary retention - Related Data Home Medications Medication Instructions Recorded Confirmed Fingolimod HCl [Gilenya] 0.5 mg PO DAILY 02/03/18 02/03/18 Multivit-Min/FA/Lycopen/Lutein 1 tab PO DAILY 02/03/18 02/03/18 [Centrum Silver Men Tablet] Previous Rx's Medication Instructions Recorded Aspirin 325 mg PO BID #60 tab 02/05/18 Docusate [Colace] 100 mg PO BID #60 capsule 02/05/18 HYDROcodone/APAP 7.5-325MG [[place] 1 - 2 each PO Q6HR PRN #56 tab 02/05/18 7.5-325] Tamsulosin [Flomax] 0.4 mg PO BID cap.er.24h 02/08/18 Allergies Allergy/AdvReac Type Severity Reaction Status Date / Time No Known Allergies Allergy Verified 11/06/18 04:10 Review of Systems ROS Statement: Those systems with pertinent positive or pertinent negative responses have been documented in the HPI. ROS Other: All systems not noted in ROS Statement are negative. Constitutional: Denies: fever, chills Respiratory: Denies: cough, dyspnea Cardiovascular: Denies: chest pain, palpitations, edema Gastrointestinal: Reports: as per HPI, abdominal pain. Denies: nausea, vomiting Genitourinary: Reports: as per HPI, other (Urinary retention). Denies: dysuria, hematuria, testicular pain Musculoskeletal: Denies: back pain Skin: Denies: rash Past Medical History Past Medical History: Asthma, Cancer, Prostate Disorder Additional Past Medical History / Comment(s): MS, asthma as a child only, benign prostatic hypertrophy History of Any Multi-Drug Resistant Organisms: None Reported Past Surgical History: No Surgical Hx Reported, Orthopedic Surgery Additional Past Surgical History / Comment(s): lt foot hammertoe sx-pins in place, colonoscopy/polypectomy-benign, back injections, hip Past Anesthesia/Blood Transfusion Reactions: No Reported Reaction Past Psychological History: No Psychological Hx Reported Smoking Status: Never smoker Past Alcohol Use History: Rare Past Drug Use History: None Reported - Past Family History Mother Family Medical History: Asthma Additional Family Medical History / Comment(s): Mother at age 82 from a stroke but history of emphysema Father Family Medical History: Cancer, Congestive Heart Failure (CHF), Hypertension, Prostate Disorder Additional Family Medical History / Comment(s): Father at age 83 with history of prostate cancer. Brother(s) Additional Family Medical History / Comment(s): Patient has a total of 5 siblings, 2 have history of A fib. Daughter(s) Additional Family Medical History / Comment(s): Patient has one daughter is healthy with no major medical problems. Patient does not have any sons. General Exam Limitations: physical limitation General appearance: alert, in no apparent distress Respiratory exam: Present: normal lung sounds bilaterally. Absent: respiratory distress, wheezes, rales, rhonchi, stridor Cardiovascular Exam: Present: regular rate, normal rhythm, normal heart sounds. Absent: systolic murmur, diastolic murmur, rubs, gallop GI/Abdominal exam: Present: soft, tenderness (There is mild tenderness in the suprapubic area and fullness consistent with bladder). Absent: distended, rebound, rigid Extremities exam: Present: normal inspection, normal capillary refill. Absent: pedal edema, calf tenderness Back exam: Present: normal inspection. Absent: CVA tenderness (R), CVA tenderness (L) Neurological exam: Present: alert Skin exam: Present: warm, dry, intact, normal color. Absent: rash Course Vital Signs 11/06/18 03:59 Temperature 97.7 F Pulse Rate 88 Respiratory 18 Rate Blood Pressure 172/85 O2 Sat by Pulse 97 Oximetry Medical Decision Making - Medical Decision Making Patient is 68-year-old man with urinary retention. Bladder scan does show urine in the bladder. Catheter was placed by nursing staff and they obtained 700 mL of urine out. This did relieve the symptoms. Given the retention I did leave the Siddiqui catheter in to follow-up with urology for further management. Disposition Clinical Impression: Urinary retention Disposition: HOME SELF-CARE Condition: Good Instructions (If sedation given, give patient instructions): Urinary Retention in Men (ED) Is patient prescribed a controlled substance at d/c from ED?: No Referrals: Juan Dee MD [Primary Care Provider] - 1-2 days
== END 2018-11-06 04:49 | disposition home or self-care (01) ==
LOC: EC 03:47
DX: R33.9 Retention of urine, unspecified (principal); G35 Multiple sclerosis; Z79.899 Other long term (current) drug therapy
CPT/HCPCS: 51702; 51798; 99283

== ENCOUNTER → 2020-11-13 | Outpatient (CLI) | payer MEDICARE ==
[2020-11-13 11:00] LABS: Basophils # (A) 0.01 X 10*3/uL (0.00-0.10); Basophils % (A) 0.2 %; Eosinophils # (A) 0.16 X 10*3/uL (0.04-0.35); Eosinophils % (A) 3.8 %; HCT 44.4 % (39.6-50.0); Lymphocytes # (A) 0.66 X 10*3/uL (0.90-5.00); Lymphocytes % (A) 15.9 %; MCH 31.6 pg (27.0-32.0); MCHC 33.8 g/dL (32.0-37.0); MCV 93.7 fL (80.0-97.0); Mean Platelet Volume 10.6 fL (9.5-12.2); Monocytes # (A) 0.46 X 10*3/uL (0.20-1.00); Monocytes % (A) 11.1 %; Neutrophils # (A) 2.86 X 10*3/uL (1.80-7.70); Neutrophils % (A) 68.8 %; Platelet Count 177 X 10*3/uL (140-440); RBC 4.74 X 10*6/uL (4.40-5.60); RDW 12.3 % (11.5-14.5); WBC 4.16 X 10*3/uL (4.50-10.00)
[2020-11-13 15:20] LABS: African American GFR (CKD) 103.4 (60.0-200.0); Albumin 4.1 g/dL (3.80-4.90); Albumin/Globulin Ratio 1.86 (1.60-3.17); Anion Gap 10.4 mmol/L (4.00-12.00); BUN/Creat Ratio 18.75 Ratio (12.00-20.00); Calcium 8.9 mg/dL (8.7-10.3); Carbon Dioxide 22.6 mmol/L (21.6-31.8); Chol/HDL Ratio 3.27; Globulin 2.2 g/dL (1.6-3.3); LDL Cholesterol,Calculated 127.2 mg/dL (0.0-131.0); Non-African American GFR(CKD) 89.2 (60.0-200.0); Potassium 4.2 mmol/L (3.5-5.5); Total Bilirubin 1.3 mg/dL (0.2-1.2); Total Protein 6.3 g/dL (6.2-8.2); VLDL Calculation 15.8 mg/dL (5.00-40.00)
[2020-11-13 15:29] LABS: Prostate Specific Antigen 4.5 ng/mL (0.0-6.5)
== END | disposition home or self-care (01) ==
LOC: LABWHC1 08:25
PROVIDERS: ATTEND Psychiatry & Neurology Neurology
DX: G35 Multiple sclerosis (principal); N40.0 Benign prostatic hyperplasia without lower urinary tract symptoms; N13.9 Obstructive and reflux uropathy, unspecified; Z79.899 Other long term (current) drug therapy
CPT/HCPCS: 36415; 80053; 80061; 84153; 85025

== ENCOUNTER → 2024-01-20 | Outpatient (CLI) | payer MEDICARE ==
--- NOTE | 2024-01-20 10:01 | MR ---
EXAMINATION TYPE: MR brain/cspine wo/w DATE OF EXAM: 01/20/2024 7:33 AM COMPARISON: MRI brain 06/06/2015, 02/02/2010, MRI brain C-spine 06/23/2011, MR C-spine/T-spine 06/06/2015 CLINICAL INDICATION: Male, 73 years old with history of G35 MS, Left side weakness, MS IV Contrast: 9 cc Gadobutrol (None if empty) TECHNIQUE: Multiplanar, multisequence images of the brain and cervical spine is performed without and with IV co ntrast, utilizing 9 mL intravenous Gadobutrol . FINDINGS: Redemonstration of multiple T2/FLAIR hyperintense supratentorial lesions. At least 30 lesions are pre sent. These are predominantly identified within the pericallosal and periventricular deep white matte r bilaterally. These are predominately stable from prior examination with the exception of a more tracy id appearing right frontoparietal region lesion measuring 1.2 cm, previously measured 1.0 cm (series 1502, image 21). None of these lesions demonstrate enhancement. Diffusion weighted images demonstrate no evidence of a recent infarct or other diffusion abnormality. There is no extra-axial fluid collection or significant white matter signal abnormality. The ventr icular system and cisternal spaces are normal in size and appearance. The brain volume is age approp riate. Midline structures demonstrate normal morphology. Single focus of prior microhemorrhage identified w ithin the left frontal lobe. The craniocervical junction appears within normal limits. Post contrast images demonstrate no abnormal enhancement. The dural venous sinuses appear patent. The paranasal si nuses are clear. The globes are intact bilaterally. Sagittal images of the cervical spine show the craniocervical junction to appear within normal limits . The cervical and upper thoracic spinal cord is normal in course and caliber. Redemonstration of a vertical area of increased T2 signal anteriorly in spinal cord at C4-C5 disc space level on sagittal image 9. This is stable from prior exam. Vertebral alignment is anatomic. The vertebral body and intravertebral disk heights are normal. Broa d-based disc bulge at C3-C4 resulting in mild effacement of the anterior thecal sac. Left paracentral disc protrusion redemonstrated with mild effacement of anterior thecal sac. Some multilevel endplate changes most pronounced in the upper cervical spine are redemonstrated. Mild to moderate multileve l anterior spurring is present. Axial images show the C2-C3 level to appear within normal limits. Axial images at the C3-C4 level shows a broad-based disc bulge effacing the anterior thecal sac causi ng some flattening of ventral surface of spinal cord. The bilateral neural foramina are patent. The findings are stable from prior. Axial images at C4-C5 level shows a left paracentral disc protrusion mildly effacing the anterior the [place] sac and uncovertebral facet degenerative changes bilaterally causing mild to moderate left and mi ld right-sided neural foraminal narrowing, findings felt stable from prior. Axial images at C5-C6 level show uncovertebral facet degenerative changes and right-sided disc osteop hyte complex mildly effacing the anterior thecal sac and causing moderate right-sided neural foramina l narrowing. Left-sided neural foramina is patent. Axial images at C6-C7 level show to facet degenerative changes bilaterally causing mild to moderate l eft greater than right neural foraminal narrowing. Stable from prior exam. Axial images at C7-T1 level show uncovertebral facet degenerative changes with lobulated posterior di sc protrusion mildly effacing the anterior thecal sac and causing moderate bilateral neural foraminal narrowing which is stable from prior exam. IMPRESSION: 1. Moderate white matter changes related known multiple sclerosis redemonstrated. There is a right f rontoparietal lesion with more solid appearance and marginal increase in size from prior exam. Howeve r no enhancing lesions are present to suggest active demyelination. 2. Stable abnormal signal in the mid cervical spinal cord presumed related to known demyelinating di sease. No enhancement to suggest active demyelination. 3. Overall similar multilevel degenerative changes of the cervical spine. [facility], , 01/20/2024 9:59 AM
== END | disposition home or self-care (01) ==
LOC: RADMRIMAIN 06:09
PROVIDERS: ATTEND Psychiatry & Neurology Neurology
DX: M50.221 Other cervical disc displacement at C4-C5 level (principal); M47.812 Spondylosis without myelopathy or radiculopathy, cervical region; G35 Multiple sclerosis
CPT/HCPCS: 70553; 72156; A9585

== ENCOUNTER → 2024-01-22 | Outpatient (CLI) | payer MEDICARE ==
--- NOTE | 2024-01-22 09:42 | MR ---
INDICATION: Patient age:Male; 73 years old; Reason for study: G35 MULTIPLE SCLEROSIS; [facility]. COMPARISON: MR C-spine/thoracic spine 06/06/2015, MR thoracic spine 02/03/2010. TECHNIQUE: Multi planar, multi sequence imaging was performed of the thoracic spine before and after the uneventful administration of 9 mL of Gadobutrol intravenously. FINDINGS: Motion degraded exam. The thoracic vertebral bodies have preserved heights and alignment. The osseous structures have heter ogenous bone marrow signal. Thoracic spinal cord appears unremarkable without signal abnormality. . Multilevel disc desiccation is present. Some mild multilevel anterior spurring is present. No abnorma l STIR signal. No abnormal contrast enhancement. Redemonstration of tiny central disc protrusion with mild effacement of anterior thecal sac at T2-T3. No significant neural foraminal stenosis. T12-L1 moderate bilateral neural foraminal stenosis. No significant central canal or neural foraminal stenosis. Remainder of the thoracic spine demonstrate no significant central canal or neural foraminal stenosis . IMPRESSION: No evidence of demyelinating process involving the thoracic spine. [facility], , 01/22/2024 9:39 AM
== END | disposition home or self-care (01) ==
LOC: RADMRIMAIN 05:55
PROVIDERS: ATTEND Psychiatry & Neurology Neurology
DX: G35 Multiple sclerosis (principal)
CPT/HCPCS: 72157; A9585